=== PATIENT | male | born 1950 | race Caucasian/White ===

== ENCOUNTER 2016-09-16 08:52 | Outpatient (CLI) | payer MEDICARE ==
[~2016-09-16] VITALS: Ht 180.3 cm; Wt 73.2 kg
--- NOTE | ~2016-09-16 | HEMODYNAMI ---
PATIENT:MARYANN KWONG MEDICAL RECORD: [id number] : 52 LOCATION:[facility] ADMISSION DATE: 09/16/16 Generatedon:09/16/201611:34 Patient name: MARYANN KWONG Patient #: [id number] SSN: : 1950 Date of study: 09/16/2016 Page: Of Hemodynamic Procedure Report Patient Data Patient Demographics Procedure consent was obtained First Name: MARYANN Gender: Male Last Name: ELENITA : 1950 [facility] Initial: TAMIKA Age: 66 year(s) Patient #: [id number] Race: Unknown Additional ID: [id number] Contact details Address: [address] [place] [address] State: [place] City: [place] Zip code: [address] Past Medical History Allergies: No known allergies Admission Admission Data Admission Date: 09/16/2016 Admission Time: 8:52 Height (in.): 71 BSA: 1.92 (m2) Height (cm.): 180.34 BMI: 22.45 (kg/m2) Weight (lbs.): 161 Weight (kg.): 73.03 Procedure Procedure Types Cath Procedure Peripheral Cath Diagnostic Procedure Miscellaneous Procedure Description Procedure Date Procedure Date: 09/16/2016 Procedure Start Time: 11:14 Procedure Staff Name Function Timur Clinton MD Performing Physician Pee Harrison RT Scrub Andria Barnes RN Nurse Bren Morse RT Manager Of Hospital Bren Morse RT Monitor Procedure Data Cath Procedure Diagnostic catheters Device Type Used For End Catheter Placement Merit UHF Pigtail VESSEL SIZING 5Fr 65CM catheter Procedure Medications Medication Administration Route Dosage Oxygen NC 3 l/min Lidocaine 1% added to field 20 Heparin Flush Bag added to field 3 bags (1000units/500ml NS) Benadryl I.V. 50 mg Versed I.V. 1 mg Fentanyl 50 mcg Hemodynamics Rest BSA: 1.92 (m2) O2 Consumption: Estimated: 241.75 (ml/min) O2 Consumption indexed : Estimated:125.91 (ml/min/m) Heart Rate: 95 (bpm) Snapshots Pre Cath Intra NCS Post Cath Vital Signs Time Heart Resp SPO2 NIBP (mmHg) Rhythm Pain Sedation Rate (ipm) (%) Status Level (bpm) 11:04:21 101 14 100 165/86(133) NSR 0 (11) 10(A) , No pain 11:08:37 110 31 99 159/98(121) NSR 0 (11) 10(A) , No pain 11:12:57 115 14 99 160/85(134) NSR 0 (11) 10(A) , No pain 11:17:11 105 12 98 154/91(130) NSR 0 (11) 10(A) , No pain 11:21:23 107 13 98 153/93(118) NSR 0 (11) 10(A) , No pain 11:25:37 108 17 98 148/89(113) NSR 0 (11) 10(A) , No pain 11:29:49 110 42 100 151/92(110) NSR 0 (11) 10(A) , No pain 11:34:01 113 21 98 154/98(120) NSR 0 (11) 10(A) , No pain Medications Time Medication Route Dose Verified Delivered Reason Notes Effe ctiveness by by 11:00:03 Oxygen NC 3 Andria Andria used for l/min Cameron Cameron fat purification worker RN 11:00:15 Lidocaine 1% added 20ml Andria Andria used for to vial Cameron Cameron procedure field RN RN 11:00:29 Heparin Flush added 3 Andria Andria used for Bag to bags Cameron Cameron procedure (1000units/500ml field RN RN NS) 11:13:00 Benadryl I.V. 50 mg Andria Andria Per Cameron Cameron physician RN RN 11:13:51 Versed I.V. 1 mg Andria Andria for Cameron Cameron sedation RN RN 11:14:05 Fentanyl 50 Andria Andria for mcg Cameron Cameron sedation RN mainframe systems administrator Log Time Note 10:47:14 Patient Weight : 161 lbs 10:47:23 Patient Height : 71 inches 10:48:12 Time tracking: Regular hours 10:49:31 - 10:49:36 Use device set IR Diagnostic 10:49:38 Sterile Angiographic Pack opened to sterile field. 10:49:39 Bag Decanter opened to sterile field. 10:49:40 Acist Manifold opened to sterile field. 10:49:42 Acist Hand Control opened to sterile field. 10:49:43 Acist Syringe opened to sterile field. 10:50:03 IdenIve DOC .035 guide wire opened to sterile field. 10:50:04 PERCUTANEOUS ENTRY 19GA needle opened to sterile field. 10:50:05 Cordis 5Fr BRITE TIP 11cm sheath opened to sterile field. 10:50:18 TUBING, CONTRAST INJCTN HI PRES opened to sterile field. 10:50:52 A Opsmatic F Pigtail VESSEL SIZING 5Fr 65CM catheter was advanced over the wire and used for . 10:51:12 Correct patient and procedure confirmed by team. 10:51:15 Signed procedure consent form obtained from patient. 10:51:23 H&P Date Dictated: 09/16/2016 Within 30 days and on chart.. 10:51:25 Pre-procedure instructions explained to patient. 10:51:26 Pre-op teaching completed and patient verbalized understanding. 10:51:29 Family in waiting room. 10:51:33 Patient NPO since Midnight. 10:52:03 Patient allergic to No known allergies 10:52:08 Is the patient allergic to Iodine/contrast media? No. 10:52:24 Is patient on blood thinner?No 10:52:31 Patient diabetic? Yes. 10:52:33 If diabetic: On Metformin? Yes 10:52:43 - 10:52:48 ----Pre-sedation anethsthesia assessment.---- 10:52:52 Previous problem with sedation/anesthesia? No ? 10:52:57 Snore? No 10:53:01 Sleep apnea? No 10:53:04 Deviated septum? No 10:53:06 Opens mouth fully? Yes 10:53:08 Sticks out tongue? Yes 10:53:12 Airway obstruction? No ? 10:53:16 Dentures? No ? 10:53:18 - 10:53:24 Pre procedure: right dorsailis pedis pulse Doppler 10:53:31 Pre procedure: right posterior tibial pulse 0-Absent 10:53:35 Pre procedure: left dorsailis pedis pulse Doppler 10:53:39 Pre procedure: left posterior tibial pulse Doppler 10:53:51 IV patent on arrival in left forearm with 0.9% NaCl at [facility]. 10:54:00 Right groin area was prepped with chlora-prep and draped in sterile fashion 10:54:04 Left groin area was prepped with chlora-prep and draped in sterile fashion 10:54:06 Alarms reviewed by RLakhwinder NLakhwinder 10:54:07 Sharps counted by scrub and verified by RLakhwinderNLakhwinder 10:54:08 - 11:00:03 Oxygen 3 l/min NC was given by Andria Barnes RN; used for procedure; 11:00:15 Lidocaine 1% 20ml vial added to field was given by Andria Barnes RN; used for procedure; 11:00:29 Heparin Flush Bag (1000units/500ml NS) 3 bags added to field was given by Andria Barnes RN; used for procedure; 11:01:17 ECG and BP/O2 sat monitors applied to patient. 11:02:21 Vital chart was started 11:04:12 Baseline sample Acquired. 11:04:33 Full Disclosure recording started 11:04:34 - 11:12:33 Physician arrived 11:12:42 --------ALL STOP TIME OUT------ 11:12:43 Final Timeout: patient, procedure, and site verified with staff and physician. All members of the team are in agreement. 11:12:53 Right groin site verified by team. 11:13:00 Benadryl 50 mg I.V. was given by Andria Barnes RN; Per physician; 11:13:02 Physical assessment completed. ASA score P 3 - A patient with severe systemic disease as per Timur Clinton MD. 11:13:13 Sedation plan: IV Moderate Sedation Versed, Fentanyl 11:13:37 Procedure started. 11:13:51 Versed 1 mg I.V. was given by Andria Barnes RN; for sedation; 11:14:05 Fentanyl 50 mcg was given by Andria Barnes RN; for sedation; 11:32:45 dr. clinton came in the room and looked at heart rate and rhythm and said to abort the case. patient will consult with specialty food products supervisor before proceding with lower ext. arteriogram. 11:34:46 Vital chart was stopped Device Usage Item Name Manufacture Quantity Catalog Hospital Part Current Minimal Lot# / Number Charge Number Stock Stock Serial# Code Sterile Cardinal 1 [id number] 5 Angiographic Health Pack Bag Decanter Microtek 1 [id number] [id number] [id number] 5 Medical Inc. Acist Acist 1 13988 453834 563234 [id number] 5 Manifold Medical Systems Inc Acist Hand Acist 1 35622 765307 985054 752630 5 Control Medical Systems Inc Acist Acist 1 43483 926971 169754 651580 20 Syringe Medical Systems Inc Cook DOC Cook Medical 1 [id number] [id number] 5 [id number] .035 guide wire PERCUTANEOUS Cook Medical 1 [id number] 570683 636004 5 ENTRY 19GA needle Cordis 5Fr Cardinal 1 [id number] 070340 5 BRITE TIP Health 11cm sheath TUBING, Merit 1 [id number] 567158 100197 869300 5 CONTRAST Medical INJCTN HI PRES Merit [facility] Merit 1 [id number] 762702 094650 5 Pigtail Medical VESSEL SIZING 5Fr 65CM catheter Signature Audit Normangee Stage Time Signature Unsigned Intra-Procedure 09/16/2016 Bren Morse 11:34:43 AM RT(R) Signatures Monitor : Bren Morse RT Signature : Date : Time : [id number] [place] [address]
[2016-09-16] MEDS ORDERED: GLUCOPHAGE500 MG PO (10:00)
[2016-09-16] MEDS ORDERED: GABAPENTIN100 MG PO (10:01)
[2016-09-16 10:08] VITALS: BP 133/73; Ht 180.3 cm; Wt 73.2 kg
[2016-09-16 10:35] LABS: BASOPHILS 0.7 % (0.0-2.0); EOSINOPHILS 13.9 % (0-7); HEMATOCRIT 40.5 % (42.0-54.0); HEMOGLOBIN 13.9 g/dL (13.5-17.5); IMMATURE GRANULOCYTES 0.2 % (0-5); LYMPHOCYTES 24.1 % (15-50); MCHC 34.3 g/dL (31.0-37.0); MCV 93.3 fL (80.0-100.0); MEAN PLATELET VOLUME 9.6 fL (7.4-10.4); MONOCYTES 5.6 % (2-11); NEUTROPHILS 55.5 % (40-80); PLATELET COUNT 256 10x3/uL (130-400); RBC 4.34 10x6/uL (4.20-6.10); RDW 12.4 % (11.5-14.5); WBC 8.1 10x3/uL (4.8-10.8)
[2016-09-16 10:41] LABS: INR 1.03 (0.85-1.17); PROTIME 13.4 SECONDS (11.6-15.0)
[2016-09-16 10:42] LABS: APTT 31.9 SECONDS (22.8-39.4); CALC OSMOLALITY 279 mosm/kg (275-300); CALCIUM 9.2 mg/dL (8.5-10.1); CARBON DIOXIDE 27.7 mmol/L (21.0-32.0); CHLORIDE - SERUM 100 mmol/L (98-107); CREATININE - SERUM 0.8 mg/dL (0.6-1.3); GLUCOSE 157 mg/dL (74-106); POTASSIUM - SERUM 4.1 mmol/L (3.5-5.1); SODIUM 138 mmol/L (136-145); UREA NITROGEN 15 mg/dL (7-18); eGFR NON AFRICAN AMERICAN > 90 mL/min (90-120)
--- NOTE | 2016-09-16 12:10 | NUR ---
DR STILES IN, STATES OK FOR DISCHARGE. RX LEFT FOR ATENOLOL.
[2016-09-16] MEDS ORDERED: TENORMIN50 MG PO (12:30)
--- NOTE | 2016-09-25 08:46 | CN ---
PATIENT NAME:MARYANN KWONG MEDICAL RECORD: [id number] : 52 LOCATION:[facility] ADMIT DATE: ACCOUNT: [id number] CONSULTING PHYSICIAN: MADELIN STILES MD REFERRING PHYSICIAN: CHRIS SWANSON MD DATE OF CONSULTATION: 09/16/2016 ADMITTING DIAGNOSES: 1. Abnormal ECG. 2. Premature ventricular contractions -- dysrhythmia. 3. Peripheral vascular disease. 4. Claudication. 5. Angina. 6. Shortness of breath -- dyspnea on exertion. 7. Diabetes. HISTORY OF PRESENT ILLNESS: This is a gentleman who presented with claudication, had a CT angio showing significant disease, was set for aortofemoral runoff; however, was found to have abnormal ECG, frequent PVCs. He has been having shortness of breath, dyspnea on exertion. His main risk factor is diabetes. He is quite tachycardic at approximately 100 beats per minute. He has not had a cardiac workup in the past. PHYSICAL EXAMINATION: GENERAL APPEARANCE: Well-nourished, well-developed, appears stated age. Level of distress, comfortable. PSYCHIATRIC: Mental status, alert, normal affect. Orientation, oriented to time, place and person. EYES: Lids and conjunctiva, noninjected. No discharge, no pallor. ENT: Lips, teeth, gums, normal dentition. Oropharynx, no cyanosis, no pallor. NECK: Carotid arteries, bilateral normal upstroke, no bruits, no thrills. JUGULAR VEINS: No jugular venous pressure or distention. CERVICAL LYMPH NODES: Nontender, nonenlarged. THYROID: Not enlarged. Nontender. No nodules. LUNGS: Respiratory effort, unlabored. CHEST: Normal curvature. No thoracic deformity. No chest wall tenderness. Percussion, resonant. Auscultation, clear. No wheezes, no rales, no rhonchi. CARDIOVASCULAR: Precordial exam, nondisplaced. No heaves or pericardial thrills. Rate and rhythm, regular. Heart sounds, normal S1, normal S2. No S3, no gallop, no rub. Systolic murmur, not heard. Diastolic murmur, not heard. EXTREMITIES: No cyanosis, no edema. Peripheral pulses, full and equal in all extremities, except as noted. No bruits appreciated. ABDOMEN: Soft, nondistended. Normal aorta. No bruit. Nontender. No masses. Liver, nontender, no hepatomegaly. Spleen, nontender, no splenomegaly. MUSCULOSKELETAL: No joint tenderness. No joint swelling. No erythema. NEUROLOGICAL: Normal gait, normal strength, normal tone. SKIN: Warm and dry. REVIEW OF SYSTEMS: The patient reports easy bruising but reports no swollen glands. The patient reports no fever, no night sweats, no significant weight gain, no significant weight loss. No significant exercise tolerance. The patient reports no dry eyes, no irritation, no vision change. Patient reports no difficulty hearing and no ear pain. Patient reports no frequent nose bleeds or nose and sinus problems. Patient reports on arm pain on exertion. No shortness of breath while lying down. No history of heart murmur. Patient CONSULT REPORT [id number] MARYANN KWONG reports no cough, no wheezing or coughing up blood. Patient reports no abdominal pain, no vomiting. Normal appetite. No diarrhea and not vomiting blood. No nausea and no constipation. Patient reports no incontinence. No difficulty urinating. No hematuria. No increased frequency. Patient reports no muscle aches. No weakness, no arthralgias, no back pain. No swelling of the extremities. Patient reports no abnormal mole, no jaundice, no rashes. Reports no loss of consciousness. No weakness and no numbness. No seizures, dizziness, or headaches. The patient reports no depression, no sleep disturbance, feeling safe in a relationship and no alcohol abuse. Patient reports on fatigue. Reports no runny nose or sinus pressure. No itching, no hives, and no frequent sneezing. OVERALL IMPRESSION: Abnormal ECG, angina, shortness of breath, dyspnea on exertion. He very well may have hemodynamically significant coronary artery disease. We will risk stratify with stress testing Cardiolite imaging for the tachycardia. We will start him on atenolol 50 mg q. day. We will see him next week for the stress test. Further care depends upon the findings of the stress test as far as peripheral vascular disease goes. This is amenable to transcatheter revascularization. We can set this up in the near future as well. TRANSINT:[id number] Voice Confirmation ID: [id number] DOCUMENT ID: [id number] MADELIN STILES MD at 0846 CC: [id number] DICTATION DATE: 09/16/16 8018 EQUINE SCIENCE INSTRUCTOR: 09/16/16 1929 DEP CLI 09/16/16 [facility] [address] [place] [address]
== END 2016-09-16 12:50 | disposition home or self-care (01) ==
LOC: D.OPS 08:52 → D.RAD 11:00 → D.OPS 11:00
PROVIDERS: Specialist
DX: I70.213 Atherosclerosis of native arteries of extremities with intermittent claudication, bilateral legs (principal); Z01.810 Encounter for preprocedural cardiovascular examination; Z01.811 Encounter for preprocedural respiratory examination; Z01.812 Encounter for preprocedural laboratory examination; Z53.9 Procedure and treatment not carried out, unspecified reason

== ENCOUNTER 2016-09-29 08:06 | Outpatient (CLI) | payer MEDICARE ==
[~2016-09-29] VITALS: Ht 180.3 cm; Wt 74.1 kg
--- NOTE | ~2016-09-29 | HEMODYNAMI ---
PATIENT:MARYANN KWONG MEDICAL RECORD: [id number] : 52 LOCATION:[facility] ADMISSION DATE: 09/29/16 Generatedon:09/29/201611:39 Patient name: MARYANN KWONG Patient #: [id number] : 1950 Date of study: 09/29/2016 Page: Of Hemodynamic Procedure Report Patient Data Patient Demographics Procedure consent was obtained First Name: MARYANN Gender: Male Last Name: ELENITA : 1950 [facility] Initial: TAMIKA Age: 66 year(s) Patient #: [id number] Race: SSN: [id number] Additional ID: [id number] Contact details Address: [address] [place] [address] State: [place] City: [place] Zip code: [address] Past Medical History Allergies: No known allergies Admission Admission Data Admission Date: 09/29/2016 Admission Time: 8:06 Arrival Date: 09/29/2016 Arrival Time: 10:30 Admit Source: Other Insurance Payor: Medicare Weight (lbs.): 161 Weight (kg.): 73.03 Lab Results Lab Result Date: 09/29/2016 Lab Result Time: 0:00 Biochemistry Name Units Result Min Max BUN mg/dl 15 --(--*-)-- 7 18 Creatinine mg/dl 0.8 --(-*--)-- 0.6 1.3 CBC Name Units Result Min Max Hemoglobin g/dl 13.2 -*(----)-- 13.5 17.5 Procedure Procedure Types Cath Procedure Diagnostic Procedure C LH w/Coronaries PCI Procedure Coronary Stent Initial Miscellaneous Procedures Moderate Sedation up to 45 minutes Peripheral Cath Diagnostic Procedure Cath Peripheral Wxfwt-Jkwnrsg-Nqb-Off Peripheral vascular Intervention Stent Stent Iliac w/plasty Initial Procedure Description Procedure Date Procedure Date: 09/29/2016 Procedure Start Time: 10:57 Procedure End Time: 11:33 Procedure Staff Name Function Gulshan Regalado MD Performing Physician Maribel Vergara RT Scrub Luna Palomo RN Nurse Ivy Sierra RT Monitor Procedure Data Cath Procedure Fluoroscopy Diagnostic fluoroscopy Total fluoroscopy Time: 6 time: 6 min min Diagnostic fluoroscopy Total fluoroscopy dose: dose: 1010 mGy 1010 mGy Contrast Material Contrast Material Type Amount (ml) Isovue 370 214 Entry Location Entry Primary Successful Side Size Upsize Upsize Entry Closure Succes sful Closure Location (Fr) 1 (Fr) 2 (Fr) Remarks Device Remarks Femoral Left 5 Fr 6 Fr 6 Fr Vascade artery Long Short Closure System Estimated blood loss: 5 ml Diagnostic catheters Device Type Used For End Catheter Placement Cordis 5Fr Pigtail LV Angiography Catheter (MP) Cordis 5Fr JL 4.0 Left Coronary Catheter (MP) Angiography Cordis 5Fr 3DRC Catheter Right Coronary (MP) Angiography Procedure Complications No complications Procedure Medications Medication Administration Route Dosage Oxygen NC 2 l/min Lidocaine 2% added to field 20 Heparin Flush Bag added to field 2 bags (1000units/500ml NS) 0.9% NaCl I.V. 100 ml/hr Versed I.V. 1 mg Fentanyl I.V. 50 mcg Heparin Bolus I.V. 5000 units Versed I.V. 1 mg Nitroglycerin IC/IA I.C. 200 mcg Cardene I.C. 300 mcg Heparin Bolus I.V. 3000 units Versed I.V. 1 mg Integrilin (Bolus 6.8 ml 2mg/ml) Nitroglycerin IC/IA I.C. 200 mcg Hemodynamics Rest HGB: 13.2 (g/dl) Heart Rate: 89 (bpm) Pressure Samples Time Site Value (mmHg) Purpose Heart Use Rate(bpm) 11:00 LV 100/50,60 Snapshot 84 Snapshots Pre Cath Intra NCS Post Cath Vital Signs Time Heart Resp SPO2 NIBP (mmHg) Rhythm Pain Sedation Rate (ipm) (%) Status Level (bpm) 10:40:30 89 17 99 121/77(98) NSR 0 (11) 10(A) , No pain 10:44:35 87 25 99 125/75(102) NSR 0 (11) 10(A) , No pain 10:48:43 88 16 98 119/70(96) NSR 0 (11) 10(A) , No pain 10:52:51 87 15 98 108/63(88) NSR 0 (11) 10(A) , No pain 10:56:55 83 16 94 107/64(87) NSR 0 (11) 9(A) , No pain 11:00:59 86 15 99 104/60(85) NSR 0 (11) 9(A) , No pain 11:05:04 86 16 99 102/57(81) NSR 0 (11) 9(A) , No pain 11:09:06 87 18 99 117/64(88) NSR 0 (11) 9(A) , No pain 11:13:14 91 16 98 87/61(81) NSR 0 (11) 9(A) , No pain 11:17:11 95 15 97 93/57(79) NSR 0 (11) 9(A) , No pain 11:21:15 83 15 97 89/50(64) NSR 0 (11) 9(A) , No pain 11:25:17 84 16 98 90/49(63) NSR 0 (11) 9(A) , No pain 11:29:17 85 16 95 101/58(74) NSR 0 (11) 9(A) , No pain 11:33:16 87 16 94 101/61(75) NSR 0 (11) 10(A) , No pain Medications Time Medication Route Dose Verified Delivered Reason Notes Effectiveness by by 10:49:23 Oxygen NC 2 Gulshan Buffie used for l/min Sabine Palomo RN procedure 10:49:31 Lidocaine 2% added 20ml Gulshan Gulshan for local to vial Sabine Regalado MD anesthetic field 10:49:38 Heparin Flush added 2 Gulshan Gulshan used for Bag to bags Sabine Regalado MD procedure (1000units/500ml field NS) 10:49:48 0.9% NaCl I.V. 100 Gulshan Buffie Per physician ml/hr Sabine Palomo RN 10:49:56 Versed I.V. 1 mg Gulshan Buffie for sedation Sabine Palomo RN 10:50:03 Fentanyl I.V. 50 Gulshan Buffie for sedation mcg Sabine Palomo RN 10:55:08 Versed I.V. 1 mg Gulshan Buffie for sedation Sabine Palomo RN 11:07:27 Heparin Bolus I.V. 5000 Gulshan Buffie for verifi ed units Sabine Palomo RN anticoagulation with dr regalado 11:07:43 Versed I.V. 1 mg Gulshan Carrasco for sedation Sabine Palomo RN 11:14:35 Nitroglycerin I.C. 200 Gulshan Gaffney for IC/IA mcg Sabine Regalado MD vasodilation 11:16:23 Nitroglycerin I.C. 200 Gulshan Gaffney for IC/IA mcg Sabine Regalado MD vasodilation 11:17:22 Integrilin IC 6.8 Gulshan Gaffney for (Bolus 2mg/ml) ml Sabine Regalado MD antiplatelet therapy 11:18:53 Cardene I.C. 300 Gulshan Gaffney for mcg Sabine Regalado MD vasodilation 11:21:58 Heparin Bolus I.V. 3000 Gulshan Carrasco for verifi ed units Sabine Palomo RN anticoagulation with dr regalado Procedure Log Time Note 10:24:22 Arrival Date: 09/29/2016 10:30:00 AM 10:24:25 Admit Source: Other 10:24:50 Procedure type changed to Cath procedure, Diagnostic procedure, LHC, LHC w/Coronaries, PCI procedure, Coronary Stent Initial, Miscellaneous Procedures, Moderate Sedation up to 45 minutes, Peripheral Cath Diagnostic Procedure, Cath Peripheral, Ibjjo-Tegxjcc-Bgv-Off, Peripheral vascular Intervention, Stent, Stent Iliac w/plasty Initial 10:25:02 Diagnostic Cath Status : Elective 10:25:40 Maribel VALLE(R) sent for patient. Start room use. 10:25:43 Time tracking: Regular hours 10:25:48 Plan of Care:Hemodynamics will remain stable., Cardiac rhythm will remain stable., Comfort level will be maintained., Respiratory function will remain adequate., Patient/ family verbilizes understanding of procedure., Procedure tolerated without complication., Recovers from procedure without complications.. 10:30:23 Informed consent obtained and on chart 10:31:18 Insurance Payor : Medicare 10::38 Lab Result : Hemoglobin 13.2 g/dl 10::38 Lab Result : Creatinine 0.8 mg/dl 10::38 Lab Result : BUN 15 mg/dl 10:39:13 Patient received from Outpatients [facility] 2 Alert and oriented. Tansferred to table in Supine position. 10:39:14 Warm blankets applied, and nicole hugger turned on for patient comfort. 10:39:15 Warm blankets applied, and nicole hugger turned on for patient comfort. 10:39:16 Correct patient and procedure confirmed by team. 10:39:20 ECG and BP/O2 sat monitors applied to patient. 10:39:32 Vital chart was started 10:40:10 Baseline sample Acquired. 10:40:16 Rhythm: sinus rhythm 10:40:19 Full Disclosure recording started 10:40:26 H&P Date Dictated: 09/29/2016 Within 30 days and on chart., H&P Addendum completed by physician on day of procedure. (MUST COMPLETE FOR ALL OUTPATIENTS). 10:40:28 Pre-procedure instructions explained to patient. 10:40:30 Family in waiting room. 10:40:31 Patient NPO since Midnight. 10:40:39 Patient allergic to No known allergies 10:40:43 Is the patient allergic to Iodine/contrast media? No. 10:41:10 Snore? Yes 10:41:14 Sleep apnea? No 10:41:28 Patient diabetic? Yes. 10:41:30 If diabetic: On Metformin? Yes 10:41:35 If on Metformin: Last Dose? 09/27/2016 10:41:55 Is patient on blood thinner?Yes 10:41:59 ACC The patient was administered the following blood thiners within the last 24 hours: ACCPlavix 10:42:08 Patient pain scale 0/10 ?. 10:42:17 IV patent on arrival in left forearm with 0.9% NaCl at KVO. 10:42:24 Lab results completed and on chart. 10:42:40 Bilateral groins area was prepped with chlora-prep and draped in sterile fashion 10:42:42 Alarms reviewed by Claudia Ladd 10:42:44 Physician paged 10:42:48 Physician arrived 10:42:50 --------ALL STOP TIME OUT------ 10:42:51 Final Timeout: patient, procedure, and site verified with staff and physician. All members of the team are in agreement. 10:43:00 Bilateral groins site verified by team. 10:43:05 Physical assessment completed. ASA score P 2 - A patient with mild systemic disease as per Gulshan Regalado MD. 10:43:09 Sedation plan: IV Moderate Sedation Versed, Fentanyl 10:43:20 Use device set Femoral Dx 10:49:23 Oxygen 2 l/min NC was given by Luna Palomo RN; used for procedure; 10:49:31 Lidocaine 2% 20ml vial added to field was given by Gulshan Regalado MD; for local anesthetic; 10:49:38 Heparin Flush Bag (1000units/500ml NS) 2 bags added to field was given by Gulshan Regalado MD; used for procedure; 10:49:48 0.9% NaCl 100 ml/hr I.V. was given by Luna Palomo RN; Per physician; 10:49:56 Versed 1 mg I.V. was given by Luna Palomo RN; for sedation; 10:50:03 Fentanyl 50 mcg I.V. was given by Luna Palomo RN; for sedation; 10:50:15 Acist Syringe opened to sterile field. 10:50:16 Bag Decanter opened to sterile field. 10:50:16 Medline Cath Pack opened to sterile field. 10:50:17 Terumo 5Fr Boissevain Sheath opened to sterile field. 10:50:18 St Sheng 260cm J .035 wire opened to sterile field. 10:50:19 Acist Hand Control opened to sterile field. 10:50:20 Acist Manifold opened to sterile field. 10:50:20 Diagnostic Infinity 5Fr Multipack catheter opened to sterile field. 10:50:21 Tegaderm 4 x 4 opened to sterile field. 10:55:08 Versed 1 mg I.V. was given by Luna Palomo RN; for sedation; 10:56:32 Procedure started. 10:57:38 Local anesthetic to left femerol artery with Lidocaine 2% by Gulshan Regalado MD.INITIAL ACCESS ONLY 10:59:58 A 5 Fr sheath was inserted into the Left Femoral artery 11:00:10 A Cordis 5Fr Pigtail Catheter (MP) was advanced over the wire and used for LV Angiography. 11:00:49 EF : 30 % 11:00:51 LV gram done using AMOR 11:00:53 Injector settings: Ml/sec: 5, Volume: 15, 11:01:14 Abdominal angiogram w/ runoff was performed. 11:02:36 Catheter removed. 11:02:51 A Cordis 5Fr JL 4.0 Catheter (MP) was advanced over the wire and used for Left Coronary Angiography. 11:03:44 LCA angiography performed. 11:03:47 Injector settings: Ml/sec: 3, Volume: 6, 11:04:23 Catheter removed. 11:04:29 A Cordis 5Fr 3DRC Catheter (MP) was advanced over the wire and used for Right Coronary Angiography. 11:05:23 RCA angiography performed. 11:05:26 Injector settings: Ml/sec: 3, Volume: 6, 11:06:06 Catheter removed. 11:07:27 Heparin Bolus 5000 units I.V. was given by Luna Palomo RN; for anticoagulation; verified with dr regalado 11:07:43 Versed 1 mg I.V. was given by Luna Palomo RN; for sedation; 11:07:48 Arrow 6Fr 45cm Sheath opened to sterile field. 11:08:01 Terumo ANGLED SS 260CM glide wire opened to sterile field. 11:08:17 Proceeding to intervention. 11:08:27 Sheath upsized to a 6 Fr Long. 11:09:05 Medtronic Launcher 6Fr AR 2.0 guide catheter opened to sterile field. 11:09:19 7Summits BasixCompak Inflation Kit opened to sterile field. 11:09:20 Schmid Whisper J 300cm 0.014 guide wire opened to sterile field. 11:09:48 6 Fr ar 2 guide catheter was inserted over the wire 11:09:52 whisper wire advanced. 11:11:24 Wire advanced across lesion. 11:12:01 Inflation Number: 1 A Medtronic Integrity 2.5 X 18 stent was prepped and advanced across the Dist RCA. The stent was deployed at 13 EFREM for 0:10 (min:sec). 11:12:40 Stent catheter was removed intact over wire. 11:12:43 Wire removed. 11:14:35 Nitroglycerin IC/IA 200 mcg I.C. was given by Gulshan Regalado MD; for vasodilation; 11:15:13 6 Fr ar 2 guide catheter was inserted over the wire 11:15:35 RCA angiography performed. 11:16:23 Nitroglycerin IC/IA 200 mcg I.C. was given by Gulshan Regalado MD; for vasodilation; 11:17:22 Integrilin (Bolus 2mg/ml) 6.8 ml IC was given by Gulshan Regalado MD; for antiplatelet therapy; 11:18:53 Cardene 300 mcg I.C. was given by Gulshan Regalado MD; for vasodilation; 11:20:55 Schmid Whisper J 300cm 0.014 guide wire opened to sterile field. 11:21:58 Heparin Bolus 3000 units I.V. was given by Luna Palomo RN; for anticoagulation; verified with dr regalado 11:21:59 whisper wire advanced. 11:22:08 Inflation Number: 1 A Medtronic Integrity 3.5 X 30 stent was prepped and advanced across the Mid RCA. The stent was deployed at 13 EFREM for 0:10 (min:sec). 11:22:39 Stent catheter was removed intact over wire. 11:22:45 Wire removed. 11:24:23 Guide catheter removed. 11:24:27 glide wire advanced. 11:26:10 Inflation Number: 1 A Cordis Melly 6 x 59 x 135 stent was prepped and advanced across the Proximal Common Iliac, Left. The stent was deployed at 15 EFREM for 0:10 (min:sec). 11:27:39 Terumo 6Fr Boissevain Sheath opened to sterile field. 11:28:02 Wire removed. 11:28:05 Sheath upsized to a 6 Fr Short. 11:28:24 Vascade 6/7 Fr Closure Device opened to sterile field. 11:28:34 Sheath removed intact; hemostasis achieved with Vascade Closure System to the Left Femoral artery. 11:29:19 Procedure ended.(Physican Out) 11:31:49 Fluoroscopy time 06.00 minutes. 11:32:25 Fluoroscopy dose: 1010 mGy 11:32:25 Flurop Dose total: 1010 11:32:28 Contrast amount:Isovue 370 214ml. 11:32:29 Sharps counted by scrub and verified by R.N. 11:32:31 Insertion/operative site no bleeding no hematoma. 11:32:37 Post-op/insertion site Left Femoral artery dressed using a 4 x 4 and Tegaderm. 11:32:40 Post left femerol artery:stable 11:32:42 Post Procedure Pulses reassessed and unchanged 11:32:44 Post procedure rhythm: unchanged. 11:32:46 Estimated blood loss: 5 ml 11:32:48 Patient needs reinforcement of post procedure teaching. 11:32:49 Post procedure instruction explained to patient.Patient verbalizes understanding. 11:32:50 Procedure and supply charges have been captured, reviewed, submitted and are correct. 11:32:54 Procedure Complication : No complications 11:32:56 Vital chart was stopped 11:32:57 See physician's report for complete and final results. 11:33:01 Report given to Pre/Post Procedure Room. 11:33:06 Patient transfered to Pre/Post Procedure Room with Stretcher. 11:33:08 Procedure ended. 11:33:08 Full Disclosure recording stopped 11:33:18 ACC-PCI Only Patient was given prescriptions, or instructed by Gulshan Regalado MD to start/continue the following medications upon discharge: Plavix 11:33:20 End room use (Document Last) 11:33:39 Patient Weight : 73.03 lbs Intervention Summary Intervention Notes Time ActionType Lesion and Equipment Action# Pressure Duration Attributes Used 11:12:01 Place stent Dist RCA Medtronic 1 13 00:10 Integrity 2.5 X 18 stent 11:22:08 Place stent Mid RCA Medtronic 1 13 00:10 Integrity 3.5 X 30 stent 11:26:10 Place stent Proximal Cordis 1 15 00:10 Common Melly 6 Iliac, Left x 59 x 135 stent Device Usage Item Name Manufacture Quantity Catalog Hospital Part Current Minima l Lot# / Number Charge Number Stock Stock Serial# Code Acist Acist 1 [id number] 284499 683019 696552 20 Syringe Medical [employer] Inc Bag Microtek 1 2002S 032759 65404 731560 5 DecOn-Ramp [employer]. Medline Cardinal 1 [id number] 862138 40565 416930 5 Cath Pack Health Terumo 5Fr Terumo 1 [id number] 727709 894422 895628 [address] Sheng 1 480884 420868 077600 619683 30 260cm J .035 wire Acist Hand Acist 1 31539 210290 893974 525592 5 Control Medical Systems Inc Acist Acist 1 18364 136876 899691 216282 5 Manifold Medical Systems Inc Diagnostic Cardinal 1 [id number] 413939 58182 102712 30 RiseSmart 5Fr Multipack catheter Tegaderm 4 3M 1 1626W 779547 105510 441157 5 x 4 Cordis 5Fr Cardinal 1 611121 5 Pigtail Health Catheter (MP) Cordis 5Fr Cardinal 1 [id number] 5 JL 4.0 Health Catheter (MP) Cordis 5Fr Cardinal 1 318051 5 3DRC Health Catheter (MP) Arrow 6Fr Teleflex 1 [id number] 103587 103410 068889 5 45cm Sheath Terumo Terumo 1 [id number] 932454 491173 078667 5 ANGLED SS 260CM glide wire Medtronic Medtronic 1 [id number] 112158 13444 551203 1 Launcher 6Fr AR 2.0 guide catheter Merit Merit 1 [id number] 070363 643888 383512 15 Bas[employer] Medical Inflation Kit Schmid Schmid 2 [id number] 345548 755633 015387 5 Whisper J Vascular 300cm 0.014 guide wire Medtronic Medtronic 1 [id number] 292698 080137 228101 8 [id number] Integrity 2.5 X 18 stent Medtronic Medtronic 1 [id number] 688173 047627 005270 1 [id number] Integrity 3.5 X 30 stent Cordis Cardinal 1 [id number] 592816 803561 5 [id number] Melly 6 x Health 59 x 135 stent Terumo 6Fr Terumo 1 [id number] 991744 243112 567483 40 Boissevain Sheath Vascade 6/7 Cardiva 1 [id number] 488023 458892 425669 5 Fr Closure Medical, Device Inc. Signature Audit [place] Stage Time Signature Unsigned Intra-Procedure 09/29/2016 Ivy Sierra 11:39:26 AM RT(R) Signatures Monitor : Ivy Sierra RT Signature : Date : Time : [facility] [address], [place] [address]
--- NOTE | ~2016-09-29 | HEMODYNAMI ---
PATIENT:MARYANN KWONG MEDICAL RECORD: [id number] : 52 LOCATION:[facility] D.2116 ADMISSION DATE: 09/29/16 Generatedon:09/30/20169:56 Patient name: MARYANN KWONG Patient #: [id number] : 1950 Date of study: 09/30/2016 Page: Of Hemodynamic Procedure Report Patient Data Patient Demographics Procedure consent was obtained First Name: MARYANN Gender: Male Last Name: ELENITA : 1950 Middle Initial: TAMIKA Age: 66 year(s) Patient #: [id number] Race: SSN: [id number] Additional ID: [id number] Contact details Address: [address] [place] [address] State: [place] City: [place] Zip code: [address] Past Medical History Allergies: No known allergies Admission Admission Data Admission Date: 09/29/2016 Admission Time: 8:06 Arrival Date: 09/29/2016 Arrival Time: 10:30 Admit Source: Other Insurance Payor: Medicare Room #: D.2116 Weight (lbs.): 161 Weight (kg.): 73.03 Lab Results Lab Result Date: 09/29/2016 Lab Result Time: 0:00 Biochemistry Name Units Result Min Max BUN mg/dl 15 --(--*-)-- 7 18 Creatinine mg/dl 0.8 --(-*--)-- 0.6 1.3 CBC Name Units Result Min Max Hemoglobin g/dl 13.2 -*(----)-- 13.5 17.5 Procedure Procedure Types Cath Procedure PCI Procedure Coronary Stent Initial Miscellaneous Procedures Moderate Sedation up to 45 minutes Peripheral vascular Intervention Stent Stent Iliac w/plasty Initial Stent-Fem/Popw/plasty Procedure Description Procedure Date Procedure Date: 09/30/2016 Procedure Start Time: 9:21 Procedure End Time: 9:50 Procedure Staff Name Function Gulshan Regalado MD Performing Physician Maribel Vergara RT Scrub Luna Palomo RN Nurse Ivy Sierra RT Monitor Procedure Data Cath Procedure Fluoroscopy Diagnostic fluoroscopy Total fluoroscopy Time: 7.7 time: 7.7 min min Diagnostic fluoroscopy Total fluoroscopy dose: dose: 43.4 mGy 43.4 mGy Contrast Material Contrast Material Type Amount (ml) Isovue 370 97 Entry Location Entry Primary Successful Side Size Upsize Upsize Entry Closure Succes sful Closure Location (Fr) 1 (Fr) 2 (Fr) Remarks Device Remarks Femoral Right 6 Fr 6 Fr Exoseal artery Long Short Estimated blood loss: 5 ml Diagnostic catheters Device Type Used For End Catheter Placement Diagnostic 5Fr IMT Multi-vessel Catheter Angiography Procedure Complications No complications Procedure Medications Medication Administration Route Dosage Oxygen NC 2 l/min Lidocaine 2% added to field 20 Heparin Flush Bag added to field 2 bags (1000units/500ml NS) 0.9% NaCl I.V. 100 ml/hr Versed I.V. 1 mg Fentanyl I.V. 50 mcg Versed I.V. 1 mg Fentanyl I.V. 50 mcg Versed I.V. 1 mg Fentanyl I.V. 50 mcg Heparin Bolus I.V. 5000 units Versed I.V. 1 mg Fentanyl I.V. 50 mcg Hemodynamics Rest HGB: 13.2 (g/dl) Heart Rate: 97 (bpm) Snapshots Pre Cath Intra NCS Post Cath Vital Signs Time Heart Resp SPO2 NIBP (mmHg) Rhythm Pain Sedation Rate (ipm) (%) Status Level (bpm) 8:32:22 96 27 97 122/67(98) NSR 0 (11) 10(A) , No pain 8:36:28 94 20 98 120/71(86) NSR 0 (11) 10(A) , No pain 8:40:34 91 19 99 117/75(95) NSR 0 (11) 10(A) , No pain 8:44:40 93 14 95 111/74(100) NSR 0 (11) 10(A) , No pain 8:48:43 93 16 96 110/70(90) NSR 0 (11) 10(A) , No pain 8:52:47 95 16 96 119/68(94) NSR 0 (11) 10(A) , No pain 8:56:55 93 14 97 102/67(81) NSR 0 (11) 10(A) , No pain 9:00:56 95 16 97 107/66(79) NSR 0 (11) 10(A) , No pain 9:05:02 91 17 97 112/63(83) NSR 0 (11) 10(A) , No pain 9:09:10 89 18 97 100/61(81) NSR 0 (11) 10(A) , No pain 9:13:59 91 19 96 98/62(85) NSR 0 (11) 10(A) , No pain 9:18:02 90 17 96 96/59(75) NSR 0 (11) 10(A) , No pain 9:22:04 90 17 94 93/58(74) NSR 0 (11) 9(A) , No pain 9:26:06 92 16 96 100/56(84) NSR 0 (11) 9(A) , No pain 9:30:08 94 15 96 94/61(80) NSR 0 (11) 9(A) , No pain 9:34:09 93 16 97 86/56(68) NSR 0 (11) 9(A) , No pain 9:38:09 92 17 98 101/62(72) NSR 0 (11) 9(A) , No pain 9:42:13 93 16 96 90/61(79) NSR 0 (11) 9(A) , No pain 9:46:12 91 16 98 99/59(79) NSR 0 (11) 9(A) , No pain 9:50:06 96 18 97 106/94(104) NSR 0 (11) 10(A) , No pain Medications Time Medication Route Dose Verified Delivered Reason Notes Effectiveness by by 8:40:16 Oxygen NC 2 Gulshan Buffie used for l/min Sabine Palomo RN procedure 8:40:25 Lidocaine 2% added 20ml Gulshan Gulshan for local to vial Sabine Regalado MD anesthetic field 8:40:31 Heparin Flush added 2 Gulshan Gulshan used for Bag to bags Sabine Regalado MD procedure (1000units/500ml field NS) 8:40:40 0.9% NaCl I.V. 100 Gulshan Buffie Per physician ml/hr Sabine Palomo RN 9:14:33 Versed I.V. 1 mg Gulshan Buffie for sedation Sabine Palomo RN 9:14:40 Fentanyl I.V. 50 Gulshan Buffie for sedation mcg Sabine Palomo RN 9:19:00 Versed I.V. 1 mg Gulshan Briaie for sedation Sabine Palomo RN 9:19:04 Fentanyl I.V. 50 Gulshan Buffie for sedation mcg Sabine Palomo RN 9:22:00 Versed I.V. 1 mg Gulshan Fraserie for sedation Sabine Palomo RN 9:22:07 Fentanyl I.V. 50 Gulshan Buffie for sedation mcg Sabine Palomo RN 9:22:56 Heparin Bolus I.V. 5000 Gulshan Buffie for verifie d units Sabine Palomo RN anticoagulation with dr regalado 9:40:03 Versed I.V. 1 mg Gulshan Buffie for sedation Sabine Palomo RN 9:40:08 Fentanyl I.V. 50 Gulshan Buffie for sedation mcg Sabine Palomo RN Procedure Log Time Note 8:00:20 Luna Palomo RN sent for patient. Start room use. 8:14:19 Informed consent obtained and on chart 8:17:25 Diagnostic Cath Status : Elective 8:18:26 Time tracking: Regular hours 8:18:30 Plan of Care:Hemodynamics will remain stable., Cardiac rhythm will remain stable., Comfort level will be maintained., Respiratory function will remain adequate., Patient/ family verbilizes understanding of procedure., Procedure tolerated without complication., Recovers from procedure without complications.. 8:26:22 Patient received from Med II to CCL 2 Alert and oriented. Tansferred to table in Supine position. 8:26:24 Warm blankets applied, and nicole hugger turned on for patient comfort. 8:26:24 Correct patient and procedure confirmed by team. 8:27:04 H&P Date Dictated: 09/30/2016 Within 30 days and on chart.. 8:27:06 Pre-procedure instructions explained to patient. 8:27:07 Family in waiting room. 8:27:09 Patient NPO since Midnight. 8:27:16 Patient allergic to No known allergies 8:27:21 Is the patient allergic to Iodine/contrast media? No. 8:27:27 Is patient on blood thinner?Yes 8:28:34 ACC The patient was administered the following blood thiners within the last 24 hours: ACCPlavix 8:28:44 Snore? Yes 8:28:50 Sleep apnea? No 8:28:51 Deviated septum? No 8:28:53 Sticks out tongue? Yes 8:29:04 Dentures? No . 8:29:19 Patient diabetic? Yes. 8:29:45 If diabetic: On Metformin? Yes 8:30:11 If on Metformin: Last Dose? 09/27/2016 8:30:20 Patient pain scale 0/10 ?. 8:30:39 IV patent on arrival in left forearm with 0.9% NaCl at [facility]. 8:30:47 Lab results completed and on chart. 8:30:55 Right groin area was prepped with chlora-prep and draped in sterile fashion 8:30:57 Alarms reviewed by R. N. 8:30:58 Sharps counted by scrub and verified by R.N. 8:30:59 Physician paged 8:31:04 ECG and BP/O2 sat monitors applied to patient. 8:31:06 Vital chart was started 8:31:08 Baseline sample Acquired. 8:31:13 Rhythm: sinus rhythm 8:31:15 Full Disclosure recording started 8:40:16 Oxygen 2 l/min NC was given by Luna Palomo RN; used for procedure; 8:40:25 Lidocaine 2% 20ml vial added to field was given by Gulshan Regalado MD; for local anesthetic; 8:40:31 Heparin Flush Bag (1000units/500ml NS) 2 bags added to field was given by Gulshan Regalado MD; used for procedure; 8:40:40 0.9% NaCl 100 ml/hr I.V. was given by Luna Palomo RN; Per physician; 8:41:36 Use device set Femoral PCI 8:41:39 Acist Syringe opened to sterile field. 8:41:39 Acist Hand Control opened to sterile field. 8:41:41 Bag Decanter opened to sterile field. 8:41:42 Medline Cath Pack opened to sterile field. 8:41:55 Terumo 6Fr [place] Sheath opened to sterile field. 8:41:57 St Sheng 260cm J .035 wire opened to sterile field. 8:41:58 Merit BasixCompak Inflation Kit opened to sterile field. 8:41:59 Acist Manifold opened to sterile field. 8:42:00 Tegaderm 4 x 4 opened to sterile field. 8:50:56 Zero performed for pressure channel P1 9::43 Physician arrived 9::44 --------ALL STOP TIME OUT------ ::44 Final Timeout: patient, procedure, and site verified with staff and physician. All members of the team are in agreement. 9:13:47 Bilateral groins site verified by team. 9::50 Physical assessment completed. ASA score P 2 - A patient with mild systemic disease as per Gulshan Regalado MD. 9:13:53 Sedation plan: IV Moderate Sedation Versed, Fentanyl 9:14:33 Versed 1 mg I.V. was given by Luna Palomo RN; for sedation; 9:14:40 Fentanyl 50 mcg I.V. was given by Luna Palomo RN; for sedation; 9:19:00 Versed 1 mg I.V. was given by Luna Palomo RN; for sedation; 9:19:04 Fentanyl 50 mcg I.V. was given by Luna Palomo RN; for sedation; 9:20:56 Terumo TORQUE DEVICE PLASTIC .038 opened to sterile field. 9:20:57 Terumo ANGLED SS 260CM glide wire opened to sterile field. 9:20:58 Terumo 6Fr [place] Destination Sheath opened to sterile field. 9:21:06 Procedure started. 9:21:09 Local anesthetic to right femoral artery with Lidocaine 2% by Gulshan Regalado MD.INITIAL ACCESS ONLY 9:21:19 A 6 Fr Long sheath was inserted into the Right Femoral artery 9:22:00 Versed 1 mg I.V. was given by Luna Palomo RN; for sedation; 9:22:07 Fentanyl 50 mcg I.V. was given by Luna Palomo RN; for sedation; 9:22:43 A Diagnostic 5Fr IMT Catheter was advanced over the wire and used for Multi-vessel Angiography. 9:22:47 glide wire advanced. 9:22:56 Heparin Bolus 5000 units I.V. was given by Luna Palomo RN; for anticoagulation; verified with dr regalado 9:24:10 Catheter removed. 9:26:26 Left leg runoff performed. 9:29:27 Inflation number: 1 A Saber 6.0 X 100 X 150 balloon was prepped and advanced across the Mid Superficial Femoral, Left, then inflated to 7 EFREM for 0:10 (min:sec). 9:34:44 Inflation number: 2 The Saber 6.0 X 100 X 150 balloon was reinflated across the Mid Superficial Femoral, Left, to 9 EFREM for 0:10 (min:sec). 9:34:47 Balloon removed over the wire. 9:36:17 Cordis SMART 6 X 150 X 120 stent was deployed across Mid Superficial Femoral, Left . 9:38:15 Stent catheter was removed intact over wire. 9:39:02 Long sheath pulled back around the horn; preparing to stent right iliac 9:40:03 Versed 1 mg I.V. was given by Luna Palomo RN; for sedation; 9:40:08 Fentanyl 50 mcg I.V. was given by Luna Palomo RN; for sedation; 9:41:03 Inflation Number: 1 A Cordis Melly 6 x 39 x 135 stent was prepped and advanced across the Mid Common Iliac, Right. The stent was deployed at 13 EFREM for 0:10 (min:sec). 9:41:13 Stent catheter was removed intact over wire. 9:41:27 glide wire removed 9:43:08 Cordis 6FR XBLAD 3.5 guide catheter opened to sterile field. 9:43:20 6 Fr xblad 3.5 guide catheter was inserted over the wire 9:43:34 Schmid Whisper J 300cm 0.014 guide wire opened to sterile field. 9:43:41 whisper wire advanced. 9:45:04 Inflation Number: 1 A Medtronic Integrity 3.0 X 26 stent was prepped and advanced across the Prox LAD. The stent was deployed at 13 EFREM for 0:10 (min:sec). 9:45:28 Inflation number: 2 The stent balloon was then re-inflated across the Prox LAD to 13 EFREM for 0:10 (min:sec). 9:45:33 Stent catheter was removed intact over wire. 9:45:34 Wire removed. 9:45:34 Guide catheter removed. 9:45:46 Sheath upsized to a 6 Fr Short. 9:46:33 Cordis 6Fr Exoseal opened to sterile field. 9:46:55 Sheath removed intact; hemostasis achieved with Exoseal to the Right Femoral artery. 9:46:58 Procedure ended.(Physican Out) 9:47:46 Fluoroscopy time 07.70 minutes. 9:48:05 Flurop Dose total: 43.4 9:48:05 Fluoroscopy dose: 43.4 mGy 9:48:15 Contrast amount:Isovue 370 97ml. 9:49:23 Sharps counted by scrub and verified by R.N. 9:49:24 Insertion/operative site no bleeding no hematoma. 9:49:28 Post-op/insertion site Right Femoral artery dressed using a 4 x 4 and Tegaderm. 9:49:30 Post right femoral artery:stable 9:49:32 Post Procedure Pulses reassessed and unchanged 9:49:34 Post procedure rhythm: unchanged. 9:49:37 Estimated blood loss: 5 ml 9:49:38 Post procedure instruction explained to patient.Patient verbalizes understanding. 9:49:39 Patient needs reinforcement of post procedure teaching. 9:50:04 Procedure type changed to Cath procedure, PCI procedure, Coronary Stent Initial, Miscellaneous Procedures, Moderate Sedation up to 45 minutes, Peripheral vascular Intervention, Stent, Stent Iliac w/plasty Initial, Stent-Fem/Popw/plasty 9:50:05 Procedure and supply charges have been captured, reviewed, submitted and are correct. 9:50:21 Procedure Complication : No complications 9:50:23 Vital chart was stopped 9:50:24 See physician's report for complete and final results. 9:50:27 Report given to [facility]. 9:50:29 Patient transfered to [facility] with Stretcher. 9:50:45 Procedure ended. 9:50:45 Full Disclosure recording stopped 9:50:52 ACC-PCI Only Patient was given prescriptions, or instructed by Gulshan Regalado MD to start/continue the following medications upon discharge: Plavix 9:50:53 End room use (Document Last) Intervention Summary Intervention Notes Time ActionType Lesion and Equipment Action# Pressure Duration Attributes Used 9:29:27 Inflate Mid Saber 6.0 1 7 00:10 balloon Superficial X 100 X Femoral, 150 Left balloon 9:34:44 Reinflate Mid Saber 6.0 2 9 00:10 balloon Superficial X 100 X Femoral, 150 Left balloon 9:36:17 Deploy self Mid Cordis 1 expanding Superficial SMART 6 X stent Femoral, 150 X 120 Left stent 9:41:03 Place stent Mid Common Cordis 1 13 00:10 Iliac, Melly 6 Right x 39 x 135 stent 9:45:04 Place stent Prox LAD Medtronic 1 13 00:10 Integrity 3.0 X 26 stent 9:45:28 Reinflate Prox LAD Medtronic 2 13 00:10 stent Integrity balloon 3.0 X 26 stent Device Usage Item Name Manufacture Quantity Catalog Number Hospital Part Current Minim al Lot# / Charge Number Stock Stock Serial# Code Acist Acist 1 46923 891733 890110 040446 20 Syringe Medical Systems Inc Acist Hand Acist 1 23080 855135 341210 544853 5 Control Medical Systems Inc Bag Microtek 1 2002S 257930 07363 822209 5 Omnisio Inc. Medline Cardinal 1 [id number] 113591 23318 098900 5 Cath Pack Health Terumo 6Fr Terumo 1 [id number] 238858 440010 660878 [address] Sheng 1 573502 732235 448321 455494 30 260cm J .035 wire Merit Merit 1 [id number] 455867 676413 024226 15 BasixZoopShop Medical Inflation Kit Acist Acist 1 23847 499600 039054 943548 5 Conservis Medical Systems Inc Tegaderm 4 3M 1 1626W 366016 397836 797329 5 x 4 Terumo Oconto 1 TD01 388739 715596 525057 5 TORQUE Scientific DEVICE PLASTIC .038 Terumo Terumo 1 [id number] 341790 933858 139426 5 ANGLED SS 260CM glide wire Terumo 6Fr Terumo 1 RSR01 832303 71385 838133 5 [place] Destination Sheath Diagnostic Oconto 1 [id number] 387564 234823 06640 5 5Fr IMT Scientific Catheter Saber 6.0 X Cardinal 1 [id number] 317745 478147 5 100 X 150 Health balloon Cordis Cardinal 1 [id number] 585275 094820 231082 0 [id number] SMART 6 X Health 150 X 120 stent Cordis Cardinal 1 [id number] 250268 32783 515081 5 [id number] Melly 6 x Health 39 x 135 stent Cordis 6FR Cardinal 1 [id number] 688016 676337 393280 10 XBLAD 3.5 Health guide catheter Schmid Schmid 1 [id number] 352055 370143 108301 5 Whisper J Vascular 300cm 0.014 guide wire Medtronic Medtronic 1 [id number] 240343 780705 4 [id number] Integrity 3.0 X 26 stent Cordis 6Fr Cardinal 1 EX600 115719 346461 540929 10 [facility] Signature Audit [facility] Stage Time Signature Unsigned Intra-Procedure 09/30/2016 Ivy Sierra 9:55:48 AM RT(R) Signatures Monitor : Ivy Sierra RT Signature : Date : Time : [place] [id number] [facility] [place] [address]
[~2016-09-29 08:06] MED LIST: GABAPENTIN100 MG PO; GLUCOPHAGE500 MG PO; TENORMIN50 MG PO
[2016-09-29] MEDS ORDERED: PLAVIX75 MG PO (08:55)
[2016-09-29] MEDS ORDERED: AMBIEN10 MG PO (08:56)
[2016-09-29 08:57] VITALS: BP 118/52; BMI 22.5
[2016-09-29 09:11] LABS: BASOPHILS 0.5 % (0.0-2.0); EOSINOPHILS 15.6 % (0-7); HEMATOCRIT 38.6 % (42.0-54.0); HEMOGLOBIN 13.2 g/dL (13.5-17.5); IMMATURE GRANULOCYTES 0.1 % (0-5); LYMPHOCYTES 12.2 % (15-50); MCH 31.9 pg (26.0-34.0); MCHC 34.2 g/dL (31.0-37.0); MCV 93.2 fL (80.0-100.0); MEAN PLATELET VOLUME 9.5 fL (7.4-10.4); MONOCYTES 6.3 % (2-11); NEUTROPHILS 65.3 % (40-80); PLATELET COUNT 229 10x3/uL (130-400); RBC 4.14 10x6/uL (4.20-6.10); RDW 12.6 % (11.5-14.5); WBC 8.3 10x3/uL (4.8-10.8)
[2016-09-29 09:22] LABS: CALC OSMOLALITY 280 mosm/kg (275-300); CALCIUM 8.9 mg/dL (8.5-10.1); CARBON DIOXIDE 28.5 mmol/L (21.0-32.0); CHLORIDE - SERUM 103 mmol/L (98-107); CREATININE - SERUM 0.8 mg/dL (0.6-1.3); GLUCOSE 174 mg/dL (74-106); POTASSIUM - SERUM 4.1 mmol/L (3.5-5.1); SODIUM 138 mmol/L (136-145); UREA NITROGEN 15 mg/dL (7-18); eGFR NON AFRICAN AMERICAN > 90 mL/min (90-120)
--- NOTE | 2016-09-29 10:33 | HP ---
PATIENT: MARYANN KWONG MEDICAL RECORD: [id number] ACCOUNT: [id number] LOCATION:[facility] : 52 ADMISSION DATE: 09/29/16 HISTORY AND PHYSICAL EXAMINATION DATE OF HISTORY AND PHYSICAL: 09/29/2016 DIAGNOSES: 1. Angina. 2. Abnormal nuclear stress test. 3. Coronary artery disease. 4. Peripheral vascular disease. 5. Claudication 6. Shortness of breath. 7. Diabetes. HISTORY OF PRESENT ILLNESS: This is a gentleman who presented last week with anginal symptomatology, as well as claudication. He was treated medically with atenolol, and continues to have symptomatology and an escalating fashion, stress test shows a large perfusion defect inferolaterally, now brought for cardiac catheterization. As well, he has a history of peripheral vascular disease and is having recurrent claudication. PHYSICAL EXAMINATION: GENERAL APPEARANCE: Well-nourished, well-developed, appears stated age. Level of distress, comfortable. PSYCHIATRIC: Mental status, alert, normal affect. Orientation, oriented to time, place and person. EYES: Lids and conjunctiva, noninjected. No discharge, no pallor. ENT: Lips, teeth, gums, normal dentition. Oropharynx, no cyanosis, no pallor. NECK: Carotid arteries, bilateral normal upstroke, no bruits, no thrills. JUGULAR VEINS: No jugular venous pressure or distention. CERVICAL LYMPH NODES: Nontender, nonenlarged. THYROID: Not enlarged. Nontender. No nodules. LUNGS: Respiratory effort, unlabored. CHEST: Normal curvature. No thoracic deformity. No chest wall tenderness. Percussion, resonant. Auscultation, clear. No wheezes, no rales, no rhonchi. CARDIOVASCULAR: Precordial exam, nondisplaced. No heaves or pericardial thrills. Rate and rhythm, regular. Heart sounds, normal S1, normal S2. No S3, no gallop, no rub. Systolic murmur, not heard. Diastolic murmur, not heard. EXTREMITIES: No cyanosis, no edema. Peripheral pulses, full and equal in all extremities, except as noted. No bruits appreciated. ABDOMEN: Soft, nondistended. Normal aorta. No bruit. Nontender. No masses. Liver, nontender, no hepatomegaly. Spleen, nontender, no splenomegaly. MUSCULOSKELETAL: No joint tenderness. No joint swelling. No erythema. NEUROLOGICAL: Normal gait, normal strength, normal tone. SKIN: Warm and dry. REVIEW OF SYSTEMS: The patient reports easy bruising but reports no swollen glands. The patient reports no fever, no night sweats, no significant weight gain, no significant weight loss. No significant exercise tolerance. The patient reports no dry eyes, no irritation, no vision change. Patient reports no difficulty hearing and no ear pain. Patient reports no frequent nose bleeds or nose and sinus problems. Patient reports on arm pain on exertion. No shortness of breath while lying down. No history of heart murmur. Patient HISTORY AND PHYSICAL [id number] MARYANN KWONG reports no cough, no wheezing or coughing up blood. Patient reports no abdominal pain, no vomiting. Normal appetite. No diarrhea and not vomiting blood. No nausea and no constipation. Patient reports no incontinence. No difficulty urinating. No hematuria. No increased frequency. Patient reports no muscle aches. No weakness, no arthralgias, no back pain. No swelling of the extremities. Patient reports no abnormal mole, no jaundice, no rashes. Reports no loss of consciousness. No weakness and no numbness. No seizures, dizziness, or headaches. The patient reports no depression, no sleep disturbance, feeling safe in a relationship and no alcohol abuse. Patient reports on fatigue. Reports no runny nose or sinus pressure. No itching, no hives, and no frequent sneezing. OVERALL IMPRESSION: Anginal symptomatology with claudication and peripheral vascular disease, most likely has hemodynamically significant coronary artery disease and peripheral vascular disease. We will proceed with coronary angiography as well as lower extremity angiography. TRANSINT:[id number] Voice Confirmation ID: [id number] DOCUMENT ID: [id number] MADELIN STILES MD at 1033 CC: [id number] DICTATION DATE: 09/29/16 0855 HEAT AND VENT AIRCRAFT MECHANIC: 09/29/16 0937 [facility] [address] [id number]
--- NOTE | 2016-09-29 12:12 | NUR ---
DR STILES AT BEDSIDE TALKING TO PATIENT AND FAMILY. L/GROIN CDI NO BLEEDING NO HEMATOMA CHEST PAIN IS DENIED
--- NOTE | 2016-09-29 12:30 | NUR ---
1230 VSS WITH CHEST PAIN DENIED 6 FR VASCADE L/GROIN CDI NO BLEEDING NO HEMATOMA NOTED. FAMILY IS AT BEDSIDE ASSISTING PATIENT WITH SANDWICH AND DRINK NAUSEA DENIED
--- NOTE | 2016-09-29 13:01 | NUR ---
6 FR VASCADE L/GROIN CDI NO BLEEDING NO HEMATOMA NOTED FAMILY IS AT BEDSIDE VSS WITH CHEST PAIN DENIED
--- NOTE | 2016-09-29 13:30 | NUR ---
1330 VOICED NO CHEST PAIN OR NEEDS AT THIS TIME 6 FR VASCADE L/GROIN CDI NO BLEEDING NO HEMATOMA NOTED
--- NOTE | 2016-09-29 15:10 | NUR ---
PATIENT TRANSPORTED VIA STRETCHER TO ROOM 2115 WITH STAFF REPORT GIVEN AT BEDSIDE VSS WITH 6 FR VASCADE L/GROIN CDI NO BLEEDING NO HEMATOMA NOTED
--- NOTE | 2016-09-29 15:21 | NUR ---
TRANSFER FROM PLASTIC FRAME INSERTER RECOVERY. RIGHT GROIN STABLE. CALL LIGHT IN REACH. WILL CONT. PLAN OF CARE.
[2016-09-29 15:55] VITALS: BP 126/68; Ht 180.3 cm; Wt 74.1 kg
[2016-09-29 16:05] VITALS: BP 132/61
--- NOTE | 2016-09-29 16:53 | NUR ---
BED REST UP. GROIN STABLE.
--- NOTE | 2016-09-29 16:59 | NUR ---
BED REST UP. GROIN STABLE.
--- NOTE | 2016-09-29 19:00 | NUR ---
INITIAL ROUNDS MADE. PT LYING IN BED RESTING WELL WITH EYES CLOSED. AWAKENED EASILY WHEN NAME CALLED. DENIES NEEDS OR C/O AT THIS TIME. WILL CONT TO MONITOR.
[2016-09-29 20:00] VITALS: BP 124/67
--- NOTE | 2016-09-29 23:42 | NUR ---
SUPERVISOR OPERATIONS AT BEDSIDE FOR VS, NEEDS ADDRESSED. CALL LIGHT IN REACH.CONT TO MONITOR.
[2016-09-30] VITALS: BP 125/61
[2016-09-30 04:00] VITALS: BP 124/74
--- NOTE | 2016-09-30 05:24 | NUR ---
CONSENT SIGNED AND PLACED ON CHART FOR TODAY'S CATH
[2016-09-30 08:00] VITALS: BP 109/62
--- NOTE | 2016-09-30 08:14 | NUR ---
PRE-OPS GIVEN. TO DISTILLERY WORKER GENERAL BY BED.
--- NOTE | 2016-09-30 10:09 | NUR ---
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 VS WNL. RIGHT GROIN STABLE WITHOUT BLEEDING OR HEMATOMA NOTED. WILL MONITOR.
[2016-09-30] MEDS ORDERED: ASPIRIN81 MG PO (10:41)
[2016-09-30 12:00] VITALS: BP 101/60
--- NOTE | 2016-09-30 14:22 | NUR ---
BED REST UP. GROIN STABLE. IV AND TELEMETRY DCD. DC PLANS GIVEN. UNDERSTANDING VOICED. ESCORTED TO CAR BY W/C.
--- NOTE | 2016-10-12 10:08 | DS ---
PATIENT:MARYANN KWONG :52 MEDICAL RECORD: [id number] DISCHARGE SUMMARY ADMISSION DATE: 09/29/16 DISCHARGE DATE: 09/30/16 DATE OF DISCHARGE: 09/30/2016 DIAGNOSES: 1. Unstable angina. 2. Coronary artery disease. 3. Percutaneous transluminal coronary angioplasty stent right coronary artery and left anterior descending this admission with concomitant disease of the left circumflex. 4. Claudication. 5. Peripheral vascular disease. 6. Percutaneous transluminal angioplasty stent of both iliacs and the left superficial femoral artery this admission. 7. Hyperlipidemia. 8. Hypertension. HOSPITAL COURSE: This is a gentleman who presented with anginal symptomatology, found to have 3-vessel coronary artery disease, underwent successful PTCA stent of the RCA and LAD this admission. Discharge home with the addition of aspirin and Plavix to his medical regimen. He will follow up with in 1 week for PTCA stent in the left circumflex. He as well had severe peripheral vascular disease and claudication. He underwent MAKE UP ARTIST stent of both iliacs. He has right SFA that is critical and will be intervened next week at the time at the left circumflex. TRANSINT:[id number] Voice Confirmation ID: [id number] DOCUMENT ID: [id number] MADELIN STILES MD at 1008 CC: [id number] DICTATION DATE: 09/30/1654 MORTGAGE COLLECTOR: 09/30/16 2309 DEP CLI 09/30/[address] [address]
--- NOTE | 2016-10-12 10:08 | OP ---
PATIENT NAME: MARYANN KWONG MEDICAL RECORD: [id number] :52 LOCATION:D.CAT ADMISSION DATE: SURGEON: MADELIN STILES MD DATE OF OPERATION: 09/29/2016 PROCEDURES: 1. Stent placement iliac, left. 2. TEXTILES PRINTER iliac, left. 3. Aortofemoral runoff. 4. Abdominal aortography. INDICATION: Claudication and peripheral vascular disease. PROCEDURE: After informed consent was obtained and after a detailed explanation of the risks, benefits, as well as alternative therapies, the patient elected to proceed with angiogram and angioplasty. The left femoral area was prepped and draped in normal sterile fashion. Left femoral artery was cannulated via modified Seldinger technique with placement of 6-Croatian sheath. All catheters exchanged through this sheath. FINDINGS: Abdominal aortography was performed. The catheter was pulled down for aortofemoral runoff. Abdominal aortography reveals no significant abdominal aortic disease, no renal artery stenosis. No dissection or aneurysm formation. LEFT LEG: A. Iliac. Common iliac has no significant stenosis. The external iliac has multiple areas of 80% and 90% stenosis. B. Femoral system: The common and deep femoral are widely patent. The superficial femoral has a 95% stenosis in the mid vessel. C. Popliteal and infrapopliteal vessels: The popliteal is patent. Anterior tibial and posterior tibial were totally occluded, single-vessel runoff through the peroneal. RIGHT LEG: A. Iliac. The common iliac is widely patent external iliac is 95% stenosed. B. Femoral system: The common and deep femoral are widely patent. Superficial femoral has multiple areas of greater than 90% stenosis. C. Popliteal and infrapopliteal vessels: The popliteal is patent. Anterior tibial and posterior tibial were totally occluded. There is single-vessel runoff through the peroneal. TEXTILES PRINTER STENT OF THE LEFT ILIAC: The balloon and stent used was a 6 x 59 Cordis Melly taken to 13 atmospheres. Result was 0% residual stenosis. OVERALL IMPRESSION: Successful percutaneous transluminal angioplasty stent of the left iliac going from 90% initial stenosis to 0% residual. PLAN: For TEXTILES PRINTER stent of the right iliac tomorrow during coronary PTCA stent. TRANSINT:[id number] Voice Confirmation ID: [id number] DOCUMENT ID: [id number] OPERATIVE REPORT [id number] MARYANN KWONG MADELIN STILES MD at 1008 CC: [id number] DICTATION DATE: 09/29/16 1140 DYNAMO REPAIRER: 09/29/16 192 DEP CLI 09/30/16 [place] [id number] [place] [address]
--- NOTE | 2016-10-12 10:08 | OP ---
PATIENT NAME: MARYANN KWONG MEDICAL RECORD: [id number] :52 LOCATION:D.CAT ADMISSION DATE: SURGEON: MADELIN STILES MD DATE OF OPERATION: 09/29/2016 PROCEDURES: 1. PTCA stent, RCA. 2. Left heart catheterization. 3. Left ventriculogram. 4. Selective coronary angiography. INDICATIONS: Angina and coronary artery disease. PROCEDURE IN DETAIL: After informed consent was obtained and after a detailed explanation of the risks, benefits, as well as alternative therapies, the patient elected to proceed with angiogram and angioplasty. The right femoral area was prepped and draped in normal sterile fashion. The right femoral artery was cannulated via modified Seldinger technique with placement of 6-Wolof sheath. All catheters exchanged through this sheath. FINDINGS: Left ventriculogram was performed in the standard 30-degree AMOR view and reveals global hypokinesis throughout all segments. Overall ejection fraction 25% to 30%. SELECTIVE CORONARY ANGIOGRAPHY: 1. Left main showed no significant angiographic disease. 2. Left anterior descending has 80% stenosis proximally. 3. Left circumflex has 80+ percent stenosis in the mid vessel. 4. Right coronary has an ulcerative 80% stenosis proximally followed by greater than 80% stenosis distally. PTCA STENT OF THE RIGHT CORONARY: Stents used were 2.5 x 18 and 3.5 x 30 mm, both Integrity stents. Result was 0% residual stenosis. OVERALL IMPRESSION: Successful percutaneous transluminal coronary angioplasty stent of the RCA going from multiple areas of 80+ percent stenosis to 0% residual stenosis. PLAN: For PTCA stent of the LAD and circumflex in the near future in a staged fashion. TRANSINT:[id number] Voice Confirmation ID: [id number] DOCUMENT ID: [id number] MADELIN STILES MD at 1008 CC: [id number] DICTATION DATE: 09/29/16 1140 LINK ASSEMBLER: 09/29/161918 [facility] CLI 09/30/16 [place] [address] [place] [address]
--- NOTE | 2016-10-12 10:08 | OP ---
PATIENT NAME: MARYANN KWONG MEDICAL RECORD: [id number] :52 LOCATION:D.CAT ADMISSION DATE: SURGEON: MADELIN STILES MD DATE OF OPERATION: 09/30/2016 PROCEDURES: 1. PTCA stent LAD. 2. Selective coronary angiography. INDICATION: Angina and coronary artery disease. PROCEDURE: After informed consent was obtained and after detailed explanation of risks, benefits as well as alternative therapies, the patient elected to proceed with angiogram and angioplasty. The right femoral area had a preexisting sheath from peripheral interventional catheters exchanged through this sheath. FINDINGS: The left anterior descending has 80% stenosis proximally. This was addressed with a 3.0 x 26 mm Integrity stent. Result was 0% residual stenosis. OVERALL IMPRESSION: Successful percutaneous transluminal coronary angioplasty stent of the left anterior descending going from 80% initial stenosis to 0% residual. TRANSINT:[id number] Voice Confirmation ID: [id number] DOCUMENT ID: [id number] MADELIN STILES MD at 1008 CC: [id number] DICTATION DATE: 09/30/16 0953 FERTILIZER PROCESSING SUPERVISOR: 09/30/16 1413 DEP CLI 09/30/16 [place] [id number] [place] [id number]
--- NOTE | 2016-10-12 10:08 | OP ---
PATIENT NAME: MARYANN KWONG MEDICAL RECORD: [id number] :52 LOCATION:D.CAT ADMISSION DATE: SURGEON: MADELIN STILES MD DATE OF OPERATION: 09/30/2016 PROCEDURES: 1. Stent placement SFA, left. 2. GUTTER INSTALLER SFA, left. 3. Stent placement, iliac right. 4. GUTTER INSTALLER iliac, right. 5. Unilateral extremity angiography times 2. PROCEDURE IN DETAIL: After informed consent was obtained and after a detailed explanation of risks, benefits as well as alternative therapies, the patient elected to proceed with angiogram and angioplasty. The right femoral area was prepped and draped in normal sterile fashion. The right femoral artery was cannulated via modified Seldinger technique with placement of a 6-Anguillan sheath. All catheters exchanged through this sheath. FINDINGS: The left SFA has multiple areas of 90% to 99% stenosis. This was addressed with a 6.0 balloon, yielding suboptimal result with severe intimal dissection. Stenting was undertaken with a 6 x 150 SMART stent. Result was 0% residual stenosis. The right iliac has a 90% stenosis. This was addressed with a 6 x 39 Cordis Melly taken to 13 atmospheres. Result was 0% residual stenosis. OVERALL IMPRESSION: Successful GUTTER INSTALLER stent of the left SFA and right iliac both going from greater than 90% initial stenosis to 0% residual. TRANSINT:[id number] Voice Confirmation ID: [id number] DOCUMENT ID: [id number] MADELIN STILES MD at 1008 CC: [id number] DICTATION DATE: 09/30/16 0952 TEST LEAD APPLICATION TESTING: 09/30/16 1409 DEP CLI 09/30/16 [place] [id number]
== END 2016-09-30 14:55 | disposition home or self-care (01) ==
LOC: D.CATH 08:06 → D.M2 15:14 → D.CATH 09-30 14:55
PROVIDERS: Internal Medicine Interventional Cardiology
DX: I25.110 Atherosclerotic heart disease of native coronary artery with unstable angina pectoris (principal); I10 Essential (primary) hypertension; E11.9 Type 2 diabetes mellitus without complications; E78.5 Hyperlipidemia, unspecified; R06.02 Shortness of breath; I70.213 Atherosclerosis of native arteries of extremities with intermittent claudication, bilateral legs

== ENCOUNTER 2016-10-05 07:09 | Outpatient (CLI) | payer MEDICARE ==
[~2016-10-05] VITALS: Ht 180.3 cm; Wt 73.2 kg
--- NOTE | ~2016-10-05 | HEMODYNAMI ---
PATIENT:MARYANN KWONG MEDICAL RECORD: [id number] : 52 LOCATION:[facility] ADMISSION DATE: 10/05/16 Generatedon:10/05/201611:27 Patient name: MARYANN KWONG Patient #: [id number] : 1950 Date of study: 10/05/2016 Page: Of Hemodynamic Procedure Report Patient Data Patient Demographics Procedure consent was obtained First Name: MARYANN Gender: Male Last Name: ELENITA : 1950 [facility] Initial: TAMIKA Age: 66 year(s) Patient #: [id number] Race: SSN: [id number] Additional ID: [id number] Contact details Address: [address] [place] [address] State: [place] City: [place] Zip code: [address] Past Medical History Allergies: No known allergies Admission Admission Data Admission Date: 10/05/2016 Admission Time: 7:09 Lab Results Lab Result Date: 09/29/2016 Lab Result Time: 0:00 Biochemistry Name Units Result Min Max BUN mg/dl 15 --(--*-)-- 7 18 Creatinine mg/dl 0.8 --(-*--)-- 0.6 1.3 CBC Name Units Result Min Max Hemoglobin g/dl 13.2 -*(----)-- 13.5 17.5 Procedure Procedure Types Cath Procedure PCI Procedure Coronary Stent Initial Miscellaneous Procedures Moderate Sedation up to 30 minutes Peripheral vascular Intervention Stent Stent-Fem/Popw/plasty Procedure Description Procedure Date Procedure Date: 10/05/2016 Procedure Start Time: 10:47 Procedure End Time: 11:18 Procedure Staff Name Function Jamaal Roche RT Scrub Mauricio Rojo RT Monitor Gulshan Regalado MD Performing Physician Cira Bartlett RN Nurse Procedure Data Cath Procedure Fluoroscopy Diagnostic fluoroscopy Total fluoroscopy Time: time: 10.2 min 10.2 min Diagnostic fluoroscopy Total fluoroscopy dose: 274 dose: 274 mGy mGy Contrast Material Contrast Material Type Amount (ml) Isovue 300 90 Entry Location Entry Primary Successful Side Size Upsize Upsize Entry Closure Succes sful Closure Location (Fr) 1 (Fr) 2 (Fr) Remarks Device Remarks Femoral Left 7 Fr 7 Fr 7 Fr Exoseal artery Short Long Short Estimated blood loss: 10 ml Diagnostic catheters Device Type Used For End Catheter Placement Diagnostic 5Fr IMT Procedure Catheter Procedure Complications No complications Procedure Medications Medication Administration Route Dosage Heparin Flush Bag added to field 2 bags (1000units/500ml NS) Lidocaine 2% added to field 20 Oxygen NC 2 l/min Versed I.V. 1 mg Fentanyl I.V. 50 mcg Versed I.V. 1 mg Fentanyl I.V. 50 mcg Fentanyl I.V. 50 mcg Heparin Bolus I.V. 5000 units Fentanyl I.V. 50 mcg Hemodynamics Rest HGB: 13.2 (g/dl) Heart Rate: 75 (bpm) Snapshots Pre Cath Intra NCS Post Cath Vital Signs Time Heart Resp SPO2 NIBP Rhythm Pain Sedation Rate (ipm) (%) (mmHg) Status Level (bpm) 10:27:35 75 17 96 122/68(95) NSR 0 (11) 10(A) , No pain 10:31:45 75 20 100 130/78(93) NSR 0 (11) 10(A) , No pain 10:36:01 73 20 99 120/70(98) NSR 0 (11) 10(A) , No pain 10:40:11 71 18 98 118/70(91) NSR 0 (11) 10(A) , No pain 10:44:23 72 14 99 97/64(80) NSR 0 (11) 9(A) , No pain 10:48:25 77 16 99 105/63(87) NSR 0 (11) 9(A) , No pain 10:52:35 68 21 98 89/54(67) NSR 0 (11) 9(A) , No pain 10:56:38 69 17 99 91/53(71) NSR 0 (11) 9(A) , No pain 11:00:40 69 16 100 93/57(77) NSR 0 (11) 9(A) , No pain 11:04:44 68 16 99 96/57(73) NSR 0 (11) 9(A) , No pain 11:08:47 68 16 98 99/58(85) NSR 0 (11) 9(A) , No pain 11:12:51 71 17 98 104/63(85) NSR 0 (11) 9(A) , No pain 11:17:01 76 19 98 117/48(85) NSR 0 (11) 9(A) , No pain Medications Time Medication Route Dose Verified Delivered Reason Notes Effectiveness by by 10:29:33 Heparin Flush added 2 Gulshan Gulshan Per physician Bag to bags Sabine Regalado MD (1000units/500ml field NS) 10:29:43 Lidocaine 2% added 20ml Gulshan Gulshan used for to vial Sabine Regalado MD procedure field 10:29:52 Oxygen NC 2 Gulshan Cira Per physician l/min Sabine Bartlett RN 10:36:50 Versed I.V. 1 mg Gulshan Cira for sedation Sabine Bartlett RN 10:36:56 Fentanyl I.V. 50 Gulshan Cira for sedation mcg Sabine Bartlett RN 10:39:20 Versed I.V. 1 mg Gulshan Cira for sedation Sabine Bartlett RN 10:39:30 Fentanyl I.V. 50 Gulshan Cira for sedation mcg Sabine Bartlett RN 10:45:49 Fentanyl I.V. 50 Gulshan Cira for sedation mcg Sabine Bartlett RN 10:48:38 Heparin Bolus I.V. 5000 Gulshan Cira for dose units Sabnie Bartlett RN anticoagulation verified wt dr regalado 11:00:10 Fentanyl I.V. 50 Gulshan Cira for sedation mcg Sabine Bartlett RN Procedure Log Time Note 10:08:45 ACC Patient presents with Stable Angina CCS Anginal Class 2--Slight limitation of ordinary activity. 10:08:48 Diagnostic Cath status Elective 10:08:50 Jamaal Roche RT(R) sent for patient. Start room use. 10:08:53 Time tracking: Regular hours 10:08:58 Plan of Care:Hemodynamics will remain stable., Cardiac rhythm will remain stable., Comfort level will be maintained., Respiratory function will remain adequate., Patient/ family verbilizes understanding of procedure., Procedure tolerated without complication., Recovers from procedure without complications.. 10:26:24 Vital chart was started 10:27:05 Patient received from Pre/Post Procedure Room to CCL 2 Alert and oriented. Tansferred to table in Supine position. 10:27:06 Correct patient and procedure confirmed by team. 10:27:06 Warm blankets applied, and nicole hugger turned on for patient comfort. 10:27:08 Signed procedure consent form obtained from patient. 10:27:09 ECG and BP/O2 sat monitors applied to patient. 10:29:33 Heparin Flush Bag (1000units/500ml NS) 2 bags added to field was given by Gulshan Regalado MD; Per physician; 10:29:43 Lidocaine 2% 20ml vial added to field was given by Gulshan Regalado MD; used for procedure; 10:29:52 Oxygen 2 l/min NC was given by Cira Bartlett RN; Per physician; 10:31:29 Baseline sample Acquired. 10:31:34 Rhythm: sinus rhythm 10:31:36 Full Disclosure recording started 10:33:39 H&P Date Dictated: 10/05/2016 New H&P dictated by physician.. 10:33:41 Pre-op teaching completed and patient verbalized understanding. 10:33:41 Pre-procedure instructions explained to patient. 10:33:43 Family in waiting room. 10:33:44 Patient NPO since Midnight. 10:33:46 Is the patient allergic to Iodine/contrast media? No. 10:34:10 Is patient on blood thinner?Yes 10:34:13 ACC The patient was administered the following blood thiners within the last 24 hours: ACCPlavix 10:34:15 Patient diabetic? Yes. 10:34:17 If diabetic: On Metformin? Yes 10:34:18 If on Metformin: Last Dose? 10/03/2016 10:34:22 Previous problem with sedation/anesthesia? No ? 10:34:24 Snore? Yes 10:34:25 Sleep apnea? No 10:34:26 Deviated septum? No 10:34:27 Sticks out tongue? Yes 10:34:27 Opens mouth fully? Yes 10:34:29 Airway obstruction? No ? 10:34:35 Dentures? Yes OUT 10:34:38 Pre procedure: right dorsailis pedis pulse 1+ Palpable, but thready & weak; easily obliterated 10:34:39 Patient pain scale 0/10 ?. 10:34:43 IV patent on arrival in left forearm with 0.9% NaCl at [facility]. 10:34:45 Lab results completed and on chart. 10:34:50 Right groin area was prepped with chlora-prep and draped in sterile fashion 10:34:51 Alarms reviewed by R. N. 10:34:52 Sharps counted by scrub and verified by R.N. 10:34:53 Final Timeout: patient, procedure, and site verified with staff and physician. All members of the team are in agreement. 10:34:53 --------ALL STOP TIME OUT------ 10:34:55 Right groin site verified by team. 10:34:58 Physical assessment completed. ASA score P 2 - A patient with mild systemic disease as per Gulshan Regalado MD. 10:35:10 Sedation plan: IV Moderate Sedation Versed, Fentanyl 10:36:50 Versed 1 mg I.V. was given by Cira Bartlett RN; for sedation; 10:36:56 Fentanyl 50 mcg I.V. was given by Cira Bartlett RN; for sedation; 10:37:16 Zero performed for pressure channel P1 10:39:20 Versed 1 mg I.V. was given by Cira Bartlett RN; for sedation; 10:39:30 Fentanyl 50 mcg I.V. was given by Cira Bartlett RN; for sedation; 10:44:48 Terumo ANGLED SS 260CM glide wire opened to sterile field. 10:44:48 Terumo 7Fr Hartland Destination Sheath opened to sterile field. 10:44:49 Terumo 7Fr Hartland Sheath opened to sterile field. 10:45:01 Terumo TORQUE DEVICE PLASTIC .038 opened to sterile field. 10:45:49 Fentanyl 50 mcg I.V. was given by Cira Bartlett RN; for sedation; 10:47:02 Use device set Femoral PCI 10:47:08 Tegaderm 4 x 4 opened to sterile field. 10:47:09 Acist Manifold opened to sterile field. 10:47:11 Bag Decanter opened to sterile field. 10:47:11 Acist Hand Control opened to sterile field. 10:47:11 Acist Syringe opened to sterile field. 10:47:12 St Sheng 260cm J .035 wire opened to sterile field. 10:47:12 Medline Cath Pack opened to sterile field. 10:47:13 MileWise BasixCompak Inflation Kit opened to sterile field. 10:47:21 Procedure started. 10:47:25 Local anesthetic to left femerol artery with Lidocaine 2% by Gulshan Regalado MD.INITIAL ACCESS ONLY 10:47:51 A 7 Fr Short sheath was inserted into the Left Femoral artery 10:48:01 Terumo 7Fr Hartland Sheath opened to sterile field. 10:48:26 Sheath damaged. New Sheath opened to field. 10:48:38 Heparin Bolus 5000 units I.V. was given by Cira Bartlett RN; for anticoagulation; dose verified wtih dr regalado 10:48:57 Cordis 6FR XBLAD 4.0 guide catheter opened to sterile field. 10:49:19 6 Fr XBLAD 4 guide catheter was inserted over the wire 10:50:56 Procedure type changed to Cath procedure, PCI procedure, Coronary Stent Initial, Miscellaneous Procedures, Moderate Sedation up to 30 minutes, Peripheral vascular Intervention, Stent, Stent-Fem/Popw/plasty 10:51:05 Whisper wire advanced. 10:51:39 Wire advanced across lesion. 10:52:05 ACC PCI Site: [facility] has 85% stenosis. 10:52:06 ACC Pre-intervention JUVE Flow is 3. 10:52:11 Inflation Number: 1 A Hadron Systemstronic Integrity 3.0 X 15 stent was prepped and advanced across the Mid CX. The stent was deployed at 11 EFREM for 0:10 (min:sec). 10:52:15 ACC Post-intervention JUVE Flow is 3. 10:52:16 Stent catheter was removed intact over wire. 10:52:17 Guide catheter removed. 10:52:17 Wire removed. 10:52:38 A Diagnostic 5Fr IMT Catheter was advanced over the wire and used for Procedure. 10:52:49 Glidewire advanced around the horn the down the right leg. 10:53:11 Catheter exchanged over wire. 10:53:21 Sheath upsized to a 7 Fr Long. 10:53:36 Sheath advanced around the horn. 10:55:44 Wire removed. 10:55:58 Lorane Sci Choice PT Extra Support J 300cm .014 gu opened to sterile field. 10:57:10 Choice PT XS wire advanced. 10:59:10 Wire removed, damaged. New Choice PT XS advanced. 10:59:13 Lorane Sci Choice PT Extra Support J 300cm .014 gu opened to sterile field. 11:00:10 Fentanyl 50 mcg I.V. was given by Cira Bartlett RN; for sedation; 11:00:41 Wire advanced across lesion. 11:01:08 Inflation number: 1 A Saber 6.0 X 200 X 150 balloon was prepped and advanced across the Mid Superficial Femoral, Right, then inflated to 9 EFREM for 0:10 (min:sec). 11:01:52 Multiple inflations made at 9 Atms. 11:02:33 Balloon removed over the wire. 11:03:56 Cordis SMART 6 X 150 X 120 stent was deployed across Mid Superficial Femoral, Right . 11:05:13 Stent catheter was removed intact over wire. 11:05:16 Cordis SMART 6 X 120 X 120 stent was deployed across Mid Superficial Femoral, Right . 11:06:29 Stent catheter was removed intact over wire. 11:06:39 Cordis 7Fr Exoseal opened to sterile field. 11:07:43 Inflation number: 2 The Saber 6.0 X 200 X 150 balloon was reinflated across the Mid Superficial Femoral, Right, to 13 EFREM for 0:30 (min:sec). 11:07:49 Multiple inflations made at 13 Atms. 11:08:34 Balloon removed over the wire. 11:09:20 Wire removed. 11:09:35 Sheath upsized to a 7 Fr Short. 11:09:43 Sheath removed intact; hemostasis achieved with Exoseal to the Left Femoral artery. 11:09:46 Procedure ended.(Physican Out) 11:11:06 Fluoroscopy time 10.20 minutes. 11:11:10 Fluoroscopy dose: 274 mGy 11:11:10 Flurop Dose total: 274 11:11:18 Contrast amount:Isovue 300 90ml. 11:11:19 Sharps counted by scrub and verified by R.N. 11:11:21 Insertion/operative site no bleeding no hematoma. 11:11:24 Post-op/insertion site Left Femoral artery dressed using a 4 x 4 and Tegaderm. 11:11:34 Post Procedure Pulses reassessed and unchanged 11:11:36 Post-procedure physical assessment completed. ASA score P 2 - A patient with mild systemic disease as per Gulshan Regalado MD. 11:11:39 Post procedure rhythm: unchanged. 11:11:42 Estimated blood loss: 10 ml 11:11:43 Post procedure instruction explained to patient.Patient verbalizes understanding. 11:11:44 Patient needs reinforcement of post procedure teaching. 11:15:10 Procedure and supply charges have been captured, reviewed, submitted and are correct. 11:15:15 Procedure Complication : No complications 11:18:52 Vital chart was stopped 11:18:53 See physician's report for complete and final results. 11:18:55 Report given to Pre/Post Procedure Room. 11:18:57 Patient transfered to Pre/Post Procedure Room with Stretcher. 11:18:59 Full Disclosure recording stopped 11:18:59 Procedure ended. 11:19:41 ACC-PCI Only Patient was given prescriptions, or instructed by Gulshan Regalado MD to start/continue the following medications upon discharge: Aspirin, Plavix 11:19:52 End room use (Document Last) Intervention Summary Intervention Notes Time ActionType Lesion and Equipment Action# Pressure Duration Attributes Used 10:52:11 Place stent Mid CX Medtronic 1 11 00:10 Integrity 3.0 X 15 stent 11:01:08 Inflate Mid Saber 6.0 1 9 00:10 balloon Superficial X 200 X Femoral, 150 Right balloon 11:03:56 Deploy self Mid Cordis 1 expanding Superficial SMART 6 X stent Femoral, 150 X 120 Right stent 11:05:16 Deploy self Mid Cordis 1 expanding Superficial SMART 6 X stent Femoral, 120 X 120 Right stent 11:07:43 Reinflate Mid Saber 6.0 2 13 00:30 balloon Superficial X 200 X Femoral, 150 Right balloon Device Usage Item Name Manufacture Quantity Catalog Number Hospital Part Current Minim al Lot# / Charge Number Stock Stock Serial# Code Terumo 7Fr Terumo 1 [id number] 210259 276250 840359 5 Hartland Destination Sheath Terumo Terumo 1 [id number] 087045 708368 322384 5 ANGLED SS 260CM glide wire Terumo 7Fr Terumo 2 [id number] 909296 715853 658797 5 Hartland Sheath Terumo Lorane 1 TD01 571889 579553 176847 5 TORQUE Scientific DEVICE PLASTIC .038 Tegaderm 4 3M 1 [id number] 321093 904101 825655 5 x 4 Acist Acist 1 11403 038102 356571 696907 5 Manifold Medical Systems Inc Acist Acist 1 50003 885262 145455 112117 20 Syringe Medical Systems Inc Acist Hand Acist 1 48925 879329 625652 872520 5 Control Medical Systems Inc Bag Microtek 1 2002S 184873 08882 059801 5 Decanter Medical Inc. Medline Cardinal 1 [id number] 346594 23147 114[address] Sheng 1 716751 961035 297682 421481 30 260cm J .035 wire Merit Merit 1 [id number] 764807 217535 629793 15 Red Ambiental Medical Inflation Kit Cordis 6FR Cardinal 1 [id number] 530387 361235 083093 3 XBLAD 4.0 Health guide catheter Medtronic Medtronic 1 [id number] 498113 146629 507596 6 [id number] Integrity 3.0 X 15 stent Diagnostic Lorane 1 [id number] 583089 436427 59721 5 5Fr IMT Scientific Catheter Lorane Sci Lorane 2 [id number] 161890 432026 454157 5 Choice PT Scientific Extra Support J 300cm .014 gu Saber 6.0 X Cardinal 1 [id number] 281917 013983 5 200 X 150 Health balloon Cordis Cardinal 1 [id number] 646609 215393 591007 0 [id number] SMART 6 X Health 150 X 120 stent Cordis Cardinal 1 [id number] 384773 922855 0 [id number] SMART 6 X Health 120 X 120 stent Cordis 7Fr Cardinal 1 EX700 418804 633038 852270 5 Exoseal Health Signature Audit [place] Stage Time Signature Unsigned Intra-Procedure 10/05/2016 Jamaal Roche RT(R) 11:20:07 AM RT(R) 10/05/2016 11:25:35 AM Intra-Procedure 10/05/2016 Jamaal Roche 11:27:11 AM RT(R) Signatures Monitor : Mauricio Rojo RT Signature : Date : Time : [place] [address] [place] [address]
[~2016-10-05 07:09] MED LIST changes: +AMBIEN10 MG PO; +ASPIRIN81 MG PO; +PLAVIX75 MG PO
[2016-10-05 07:30] VITALS: BP 106/63; Ht 180.3 cm; Wt 73.2 kg
[2016-10-05 07:45] LABS: BASOPHILS 0.7 % (0.0-2.0); EOSINOPHILS 16.3 % (0-7); HEMATOCRIT 36.6 % (42.0-54.0); HEMOGLOBIN 12.5 g/dL (13.5-17.5); IMMATURE GRANULOCYTES 0.2 % (0-5); MCHC 34.2 g/dL (31.0-37.0); MCV 93.6 fL (80.0-100.0); MEAN PLATELET VOLUME 9.3 fL (7.4-10.4); MONOCYTES 6.6 % (2-11); NEUTROPHILS 54.2 % (40-80); PLATELET COUNT 251 10x3/uL (130-400); RBC 3.91 10x6/uL (4.20-6.10); RDW 12.4 % (11.5-14.5); WBC 8.9 10x3/uL (4.8-10.8)
[2016-10-05 07:54] LABS: CALC OSMOLALITY 267 mosm/kg (275-300); CALCIUM 9.2 mg/dL (8.5-10.1); CARBON DIOXIDE 28.5 mmol/L (21.0-32.0); CHLORIDE - SERUM 98 mmol/L (98-107); CREATININE - SERUM 0.8 mg/dL (0.6-1.3); GLUCOSE 204 mg/dL (74-106); POTASSIUM - SERUM 4.1 mmol/L (3.5-5.1); SODIUM 131 mmol/L (136-145); UREA NITROGEN 11 mg/dL (7-18); eGFR NON AFRICAN AMERICAN > 90 mL/min (90-120)
--- NOTE | 2016-10-05 12:45 | NUR ---
1145-LEFT GROIN-CDI, NO BLEEDING OR HEMATOMA NOTED 1215-NO CHANGES TO GROIN-SOFT TO TOUCH
--- NOTE | 2016-10-05 15:52 | NUR ---
1530-IV D'C WITH CATH INTACT, WRITTEN AND VERBAL INSTRUCTIONS GIVEN TO PT AND SON. UNDERSTOOD. UP TO REST ROOM- VOID. DENIES FURTHUR NEEDS.
--- NOTE | 2016-10-12 10:08 | OP ---
PATIENT NAME: MARYANN KWONG MEDICAL RECORD: [id number] :52 LOCATION:D.CAT ADMISSION DATE: SURGEON: MADELIN STILES MD DATE OF OPERATION: 10/05/2016 PROCEDURES: 1. Stent placement SFA, right. 2. UNDERLAY STITCHER SFA, right. 2. Unilateral extremity angiography. INDICATION: Claudication and peripheral vascular disease. DESCRIPTION OF THE PROCEDURE: After informed consent was obtained and after a detailed explanation of the risks, benefits as well as alternative therapies, the patient elected to proceed with angiogram and angioplasty. The left femoral area was prepped and draped in normal sterile fashion. Left femoral artery was cannulated via modified Seldinger technique with placement of 7-Jordanian ekdovv-hej-kjmb sheath. All catheters exchanged through this sheath. FINDINGS: The SFA has multiple areas of 90% to 95% stenosis. This was addressed with a 6.0 balloon which yielded a suboptimal result with severe intimal dissection. Stenting was undertaken with a 6 x 115 and 6 x 120 SMART stents. Result was 0% residual stenosis. OVERALL IMPRESSION: Successful percutaneous transluminal angioplasty stent of the right superficial femoral artery going from multiple areas of up to 95% initial stenosis to 0% residual with sabianism of brisk distal flow. TRANSINT:[id number] Voice Confirmation ID: [id number] DOCUMENT ID: [id number] MADELIN STILES MD at 1008 CC: [id number] DICTATION DATE: 10/05/16 1121 MEDICAL DETAIL REPRESENTATIVE: 10/05/16 1832 DEP CLI 10/05/16 [place] [id number] [place] [address]
--- NOTE | 2016-10-12 10:08 | HP ---
PATIENT: MARYANN NAVAS MEDICAL RECORD: [id number] ACCOUNT: [id number] LOCATION:[facility] : 52 ADMISSION DATE: 10/05/16 HISTORY AND PHYSICAL EXAMINATION DIAGNOSES: 1. Angina. 2. Claudication. 3. Peripheral vascular disease. 4. Coronary artery disease. 5. Hypertension. 6. Hyperlipidemia. HISTORY OF PRESENT ILLNESS: Mr. Navas presented with angina and claudication last week and found to have significant disease of both legs as well as all 3 coronary vessels. He underwent successful PTCA stent of the left leg. He has right SFA disease; it is critical that remains in the left circumflex ____. He is now brought back for EXAMINATION GRADER stent of his right SFA and left circumflex in a staged fashion. PHYSICAL EXAMINATION: GENERAL APPEARANCE: Well-nourished, well-developed, appears stated age. Level of distress, comfortable. PSYCHIATRIC: Mental status, alert, normal affect. Orientation, oriented to time, place and person. EYES: Lids and conjunctiva, noninjected. No discharge, no pallor. ENT: Lips, teeth, gums, normal dentition. Oropharynx, no cyanosis, no pallor. NECK: Carotid arteries, bilateral normal upstroke, no bruits, no thrills. JUGULAR VEINS: No jugular venous pressure or distention. CERVICAL LYMPH NODES: Nontender, nonenlarged. THYROID: Not enlarged. Nontender. No nodules. LUNGS: Respiratory effort, unlabored. CHEST: Normal curvature. No thoracic deformity. No chest wall tenderness. Percussion, resonant. Auscultation, clear. No wheezes, no rales, no rhonchi. CARDIOVASCULAR: Precordial exam, nondisplaced. No heaves or pericardial thrills. Rate and rhythm, regular. Heart sounds, normal S1, normal S2. No S3, no gallop, no rub. Systolic murmur, not heard. Diastolic murmur, not heard. EXTREMITIES: No cyanosis, no edema. Peripheral pulses, full and equal in all extremities, except as noted. No bruits appreciated. ABDOMEN: Soft, nondistended. Normal aorta. No bruit. Nontender. No masses. Liver, nontender, no hepatomegaly. Spleen, nontender, no splenomegaly. MUSCULOSKELETAL: No joint tenderness. No joint swelling. No erythema. NEUROLOGICAL: Normal gait, normal strength, normal tone. SKIN: Warm and dry. REVIEW OF SYSTEMS: The patient reports easy bruising but reports no swollen glands. The patient reports no fever, no night sweats, no significant weight gain, no significant weight loss. No significant exercise tolerance. The patient reports no dry eyes, no irritation, no vision change. Patient reports no difficulty hearing and no ear pain. Patient reports no frequent nose bleeds or nose and sinus problems. Patient reports on arm pain on exertion. No shortness of breath while lying down. No history of heart murmur. Patient reports no cough, no wheezing or coughing up blood. Patient reports no abdominal pain, no vomiting. Normal appetite. No diarrhea and not vomiting blood. No nausea and no constipation. Patient reports no incontinence. No HISTORY AND PHYSICAL [id number] MARYANN NAVAS difficulty urinating. No hematuria. No increased frequency. Patient reports no muscle aches. No weakness, no arthralgias, no back pain. No swelling of the extremities. Patient reports no abnormal mole, no jaundice, no rashes. Reports no loss of consciousness. No weakness and no numbness. No seizures, dizziness, or headaches. The patient reports no depression, no sleep disturbance, feeling safe in a relationship and no alcohol abuse. Patient reports on fatigue. Reports no runny nose or sinus pressure. No itching, no hives, and no frequent sneezing. OVERALL IMPRESSION: Anginal symptomatology with significant coronary artery disease, peripheral vascular disease with significant claudication, we will proceed with transcatheter revascularization of these territories. TRANSINT:[id number] Voice Confirmation ID: [id number] DOCUMENT ID: [id number] MADELIN STILES MD at 1008 CC: [id number] DICTATION DATE: 10/05/16 1039 EDUCATIONAL CONSULTANT: 10/05/16 1142 DEP CLI 10/05/16 [place] [id number] [place] [address]
--- NOTE | 2016-10-12 10:08 | OP ---
PATIENT NAME: MARYANN KWONG MEDICAL RECORD: [id number] :52 LOCATION:D.CAT ADMISSION DATE: SURGEON: MADELIN STILES MD DATE OF OPERATION: 10/05/2016 PROCEDURES: 1. PTCA stent left circumflex. 2. Selective coronary angiography. INDICATION: Angina and coronary artery disease. PROCEDURE PERFORMED: After informed consent was obtained and after a detailed explanation of the risks, benefits as well as alternative therapies, the patient elected to proceed with angiogram and angioplasty. The right femoral area was prepped and draped in normal sterile fashion. The right femoral artery was cannulated via modified Seldinger technique with placement of 6-Frisian sheath. All catheters exchanged through this sheath. FINDINGS: Left circumflex has an 80% to 90% stenosis in the mid vessel. This was addressed with a 3.0 x 15 mm Integrity stent. Result was 0% residual stenosis. OVERALL IMPRESSION: Successful percutaneous transluminal coronary angioplasty stent of the left circumflex going from 80% to 90% initial stenosis to 0% residual. TRANSINT:[id number] Voice Confirmation ID: [id number] DOCUMENT ID: [id number] MADELIN STILES MD at 1008 CC: [id number] DICTATION DATE: 10/05/16 1119 LEAD PROGRAMMER: 10/05/16 1817 [facility] [place] CLI 10/05/[address] [id number]
== END 2016-10-05 15:40 | disposition home or self-care (01) ==
LOC: D.CATH 07:09
PROVIDERS: Internal Medicine Interventional Cardiology
DX: I25.119 Atherosclerotic heart disease of native coronary artery with unspecified angina pectoris (principal); I70.211 Atherosclerosis of native arteries of extremities with intermittent claudication, right leg; I10 Essential (primary) hypertension; E78.5 Hyperlipidemia, unspecified